=== PATIENT | female | born 1995 | race Caucasian/White ===

== ENCOUNTER 2019-11-05 13:43 | Outpatient (NON) | payer OTHER, SELFPAY ==
[2019-11-05 13:52] LABS: Appearance Urine Clear (Clear); Bilirubin Urine Negative (Negative); Color Urine Yellow (Yellow); Glucose Urine UA Negative (Negative); Ketones Urine Negative (Negative); Leukocyte Esterase Ur Negative LEU/UL (Negative); Nitrate Urine Positive (Negative); Protein Urine Negative (Negative); Specific Grav Ur >= 1.030 (1.010-1.020); Urobilinogen Urine 0.2 mg/dL (0.2-1.0); pH Urine 5.5 (5.0-8.0)
[2019-11-05 14:04] LABS: Add Urine Microscopic? YES; Blood Urine Trace-Intact (Negative)
[2019-11-05 14:05] LABS: Bacteria Urine 1+ /hpf; RBC Urine 0-2 /hpf (0-2); Squamous Epithelial Cell Urine Rare /hpf (Few)
== END 2019-11-05 13:44 ==
PROVIDERS: Visit Provider Nurse Practitioner Family
DX: N39.0 Urinary tract infection, site not specified (principal)
CPT/HCPCS: 81001; 87077; 87086; 87088; 87186

== ENCOUNTER 2019-11-12 13:34 | Emergency (ER) | payer OTHER, SELFPAY ==
--- NOTE | 2019-11-12 14:00 | ED.DENTAL ---
HPI - Dental/Oral General Chief complaint: Dental/Oral Stated complaint: cut on side of tongue do to grinding teeth at nigh Time Seen by Provider: 11/12/19 14:00 Source: patient Mode of arrival: ambulatory Limitations: no limitations History of Present Illness HPI Narrative: 24-year-old woman comes in today complaining of pain and swelling in the right side of her tongue for the last 2 days. Patient states that she grinds her teeth at night and thinks that she bit her tongue. She states that her pain is such that she can't eat or drink without a great deal of discomfort. She has had no difficulty swallowing, difficulty breathing, fever, nausea, vomiting or neck swelling. Teeth map: 1. Laceration, swelling Onset (ago): day(s) (2) Duration: constant Severity: severe Relieving factors: nothing Exacerbating factors: chewing and swallowing Context: trauma (mechanism) ( bit tongue) Associated symptoms: tongue swelling and pain with swallowing Treatment prior to arrival: oral analgesic Related Data Allergies Allergy/AdvReac Type Severity Reaction Status Date / Time amoxicillin [Augmentin] Allergy Intermediate Verified 12/10/18 16:42 cefaclor [Ceclor] Allergy Intermediate Verified 12/10/18 16:42 clavulanic acid [Augmentin] Allergy Intermediate Verified 12/10/18 16:42 Review of Systems Constitutional: Constitutional: Denies chills, Denies fever(s) and Denies weakness Eyes: Eyes: Denies change in vision and Denies photophobia ENT: Denies dysphagia, Denies nasal congestion and Denies sore throat Cardiovascular: Cardiovascular: Denies chest pain and Denies radiating jaw, neck or arm pain Respiratory: Respiratory: Denies cough, Denies dyspnea and Denies wheezing Gastrointestinal: Gastrointestinal: Denies abdominal pain, Denies diarrhea, Denies nausea and Denies vomiting Genitourinary: Genitourinary: Denies hematuria, Denies nocturia and Denies dysuria Musculoskeletal: Musculoskeletal: Denies back pain, Denies arthralgias and Denies joint swelling Integumentary/Breasts: Skin/Breast: Denies pruritus, Denies erythema and Denies rash Neurologic: Denies vertigo, Denies dizziness and Denies syncope Hematologic/Lymphatic: Hematologic/Lymphatic: Denies easy bleeding and Denies easy bruising Allergic/Immunologic: Allergic/Immunologic: Denies lip swelling, Denies throat swelling, Reports tongue swelling and Denies wheezing [facility] Past Medical History Medical History Nicotine dependence, cigarettes, uncomplicated Overweight Positive depression screening Surgical History Surgical History Abdominal hernia 1997 Social History Social History Smoking status: Current every day smoker Tobacco type: cigarettes Alcohol intake: never Substance use: never Substance use type: does not use Exam Const: General: healthy appearing and alert Orientation/consciousness: patient oriented x3 Limitations: no limitations Other: moderate acute distress. HENMT: Ears: external ears normal, TM's normal bilaterally and EAC's normal General nose exam: Normal nares present Face and sinus: normal facial exam Mouth: Yes moist mucous membranes Throat: posterior oropharynx normal Other: Healing longitudinal laceration on the right lateral tongue. no active bleeding. There is modest swelling around the laceration. She has no stridor and no tenderness palpation at the submental neck. Eyes: Conjunctivae: conjunctivae normal EOM: EOMs intact bilaterally Neck: Neck: normal visual inspection and no lymphadenopathy Other: No tenderness or masses or swelling Resp: Effort & Inspection: normal respiratory effort and not labored Auscultation: clear to auscultation bilaterally, no rales, no rhonchi and no wheezes Cardio: Rate: regular rate Rhythm: regular rhythm Hea
[2019-11-12 14:24] VITALS: BP 136/99; PULSE 118; RESP 20; TEMP 37.1; O2SAT 94
== END 2019-11-12 14:40 | disposition home or self-care (01) ==
PROVIDERS: Emergency Provider Emergency Medicine; PCP Nurse Practitioner Family
DX: S01.512A Laceration without foreign body of oral cavity, initial encounter (principal)
CPT/HCPCS: 99283

== ENCOUNTER 2020-02-20 17:28 | Outpatient (NON) | payer OTHER, SELFPAY | END 2020-02-20 17:29 | PROVIDERS: PCP Family Medicine; Visit Provider Family Medicine | DX: N39.0 Urinary tract infection, site not specified (principal) | CPT/HCPCS: 87086; 87088 ==

== ENCOUNTER 2020-05-29 13:43 | Emergency (ER) | payer OTHER, SELFPAY ==
--- NOTE | ~2020-05-29 | CT_ITS ---
EXAMINATION: CT abdomen pelvis wo con DATE: 05/29/2020 14:53 INDICATION: Right flank pain TECHNIQUE: Computed tomography (CT) of the abdomen and pelvis was performed without intravenous contr ast. The dose-length product was 965.57 mGy-cm. Automated exposure control and iterative reconstructi on technique were employed. COMPARISON: None. FINDINGS: There is mild prominence of the proximal right ureter with subtle surrounding periureteral edema. Lung bases unremarkable. No significant pleural or pericardial effusion. Heart size is normal. The li elie, spleen, pancreas, adrenal glands and left kidney are unremarkable. No ureteral stones. Bladder i s decompressed. Nonobstructive bowel gas pattern. No free air or free fluid. No abnormal pelvic sandi s. No significant vascular abnormality. No lymphadenopathy. No acute bone or joint abnormality. IMPRESSION: 1. Mild prominence of the proximal aspect of the right ureter with surrounding periureteral edema. No obstructing stone or mass identified. These findings may represent sequela of recently passed stone or ascending urinary tract infection. Reviewed, dictated and finalized at location A. IMPRESSION: 1. Mild prominence of the proximal aspect of the right ureter with surrounding periureteral edema. No obstructing stone or mass identified. These findings may represent sequela of recently passed stone or ascending urinary tract infectio n.
[2020-05-29 13:51] VITALS: BP 123/81; PULSE 117; RESP 16; TEMP 37.4; O2SAT 96
[2020-05-29 14:27] LABS: Basophils Absolute Auto 0.04 K/mm3 (0.00-0.10); Basophils Percent Auto 0.5 % (0.0-1.0); Eosinophils Absolute Auto 0.13 K/mm3 (0.02-0.50); Eosinophils Percent Auto 1.7 % (1.0-6.0); Hemoglobin 15.6 g/dL (12.0-15.0); Immature Granulocyte Absolute 0.03 K/mm3 (0.00-0.00); Immature Granulocyte Percent A 0.4 % (0.0-0.0); Lymphocytes Absolute Auto 2.82 K/mm3 (1.10-4.50); Lymphocytes Percent Auto 36.7 % (18.0-42.0); Mean Corpuscular HGB Conc 33.2 g/dL (32.0-36.0); Mean Corpuscular Hemoglobin 28.9 pg (27.0-31.0); Mean Corpuscular Volume 87.2 fL (78.0-102.0); Mean Platelet Volume 8.5 fl (9.2-11.8); Monocytes Absolute Auto 0.66 K/mm3 (0.10-0.90); Monocytes Percent Auto 8.6 % (2.0-11.0); Neutrophils Percent Auto 52.1 % (50.0-70.0); Platelet Count Result 295 K/mm3 (150-420); Red Blood Count 5.39 M/mm3 (4.20-5.40); Red Cell Distribution Width 12.1 % (11.6-14.4); White Blood Count 7.7 K/mm3 (4.8-10.8)
[2020-05-29 14:28] LABS: Add Urine Microscopic? YES; Appearance Urine Clear (Clear); Bilirubin Urine Negative (Negative); Blood Urine 1+ (Negative); Color Urine Yellow (Yellow); Glucose Urine UA Negative (Negative); Ketones Urine Negative (Negative); Leukocyte Esterase Ur 1+ LEU/UL (Negative); Nitrate Urine Positive (Negative); Protein Urine Negative (Negative); Urobilinogen Urine 0.2 mg/dL (0.2-1.0)
[2020-05-29 14:34] LABS: Bacteria Urine 4+ /hpf; Squamous Epithelial Cell Urine Occasional /hpf (Few); WBC Urine 21-30 /hpf (0-3)
[2020-05-29 14:35] LABS: Pregnancy On Board Control Positive; Urine Pregnancy Test Negative
[2020-05-29] MEDS: SODIUM CHLORIDE 0.9% IV 1,000 ML 999 ML IV CONT (14:40)
[2020-05-29 14:41] LABS: Alanine Aminotransferase 31 U/L (14-59); Alkaline Phosphatase 89 U/L (46-116); Anion Gap 8 mmol/L (8-16); Aspartate Amino Transferase 16 U/L (15-37); Bilirubin,Total 0.4 mg/dL (0.00-1.00); Blood Urea Nitrogen 10 mg/dL (7-18); Calcium 8.7 mg/dL (8.5-10.1); Carbon Dioxide 29 mmol/L (21-32); Chloride 102 mmol/L (98-108); Estimated CRCL calculation 106 ml/min; Estimated Glomerular Filt Rate > 60; Glucose 92 mg/dL (70-99); Lipase 83 U/L (73-393); Osmolality Calculated 287 mOsm/kg (285-295); Potassium 3.8 mmol/L (3.5-5.1); Sodium 139 mmol/L (136-145); Total Protein 7.1 g/dL (6.4-8.2)
[2020-05-29] MEDS: KETOROLAC 30 MG/ML VIAL (*BKC) IV PUSH (14:44)
[2020-05-29 14:47] LABS: Lactic Acid Reflex 0.5 mmol/L (0.4-2.0)
--- NOTE | 2020-05-29 15:01 | ED.BACK ---
HPI - Back Pain/Injury General Chief Complaint: Back Pain/Injury Stated Complaint: lower back and side pain Source: patient History of Present Illness HPI Narrative: This is a 25-year-old female who presents with bilateral flank pain with suprapubic discomfort with dysuria, currently no fever chills no hematuria no nausea vomiting does have pain that she rates it about a 6/10. Currently there is no shortness of breath no chest pain does have bilateral flank tenderness an achiness. MD elicited complaint: back pain Onset (ago): day(s) Timing: intermittent Severity: moderate Pain scale (0-10): 6 Quality: aching Related Data Home Medications Medication Instructions Recorded Confirmed norethindrone-e.estradiol-iron 1 tablet PO DAILY 05/29/20 05/29/20 [[place] Fe 1.5/ (28)] Allergies Allergy/AdvReac Type Severity Reaction Status Date / Time amoxicillin [Augmentin] Allergy Intermediate Unknown Verified 11/12/19 14:41 cefaclor [Ceclor] Allergy Intermediate Unknown Verified 11/12/19 14:41 clavulanic acid [Augmentin] Allergy Intermediate Unknown Verified 11/12/19 14:41 Review of Systems Review of Systems: All systems reviewed & are unremarkable except as noted in HPI and below PMFSH Past Medical History Medical History (Updated 05/29/20 @ 15:07 by Rene Tamayo MD) Nicotine dependence, cigarettes, uncomplicated Overweight Positive depression screening Surgical History Surgical History Abdominal hernia 1998 Family History Family History Mother Hypertension Father Hypertension Social History Social History Smoking status: Current every day smoker Tobacco type: cigarettes Alcohol intake: never Substance use: never Substance use type: does not use Gender identity (if verbalized by the patient): Female Exam Const: General: no acute distress and alert Orientation/consciousness: patient oriented x3 HENMT: Head: normal to inspection Eyes: Conjunctivae: conjunctivae normal Pupils: Equal, round and reactive pupils present Neck: Neck: normal visual inspection Chest: Chest palpation & inspection: normal inspection of the chest Resp: Effort & Inspection: normal respiratory effort Cardio: Rate: regular rate Rhythm: regular rhythm GI: Auscultation: normal bowel sounds : General: Yes CVA tenderness Urinary Catheter: Urinary Catheter: patent and draining and urine clear Back/Spine/Pelvis: Back: no CVA tenderness Skin: General skin exam: normal color Rashes: no rashes Neuro: General: patient oriented x3 Extrem: General: normal to inspection Psych: Mental Status: mental status grossly normal Course Course Emergency Course: Labs and CT scan were reviewed with patient, the patient has some right periurethral edema with no obstructing stone currently no fever chills white count is normal will give her a dose of IV Levaquin, and will send pain medication and Levaquin to her pharmacy. Vital Signs Vital signs: Vital Signs Temperature 37.4 C 05/29/20 13:51 Pulse Rate 117 H 05/29/20 13:51 Respiratory Rate 16 05/29/20 13:51 Blood Pressure 123/81 05/29/20 13:51 Pulse Oximetry 96 05/29/20 13:51 Temperature 37.4 C 05/29/20 13:51 Pulse Rate 117 H 05/29/20 13:51 Respiratory Rate 16 05/29/20 13:51 Blood Pressure 123/81 05/29/20 13:51 Pulse Oximetry 96 05/29/20 13:51 MDM - Back Pain/Injury Lab Data Result diagrams: 05/29/20 14:22 05/29/20 14:22 Labs: Lab Results 05/29/20 05/29/20 05/29/20 Range/Units 14:13 14:13 14:22 WBC (4.8-10.8) K/mm3 RBC (4.20-5.40) M/mm3 Hgb (12.0-15.0) g/dL Hct (35.0-49.0) % MCV (78.0-102.0) fL MCH (27.0-31.0) pg MCHC (32.0-36.0) g/dL RDW (11.6-14.4) % Plt Count
[2020-05-29] MEDS: levoFLOXacin 500 MG/D5W 100 ML 500 MG/100 ML BAG 100 MG IVPB (15:10)
[2020-05-29 16:09] VITALS: BP 126/91; PULSE 115; RESP 15; O2SAT 99
== END 2020-05-29 16:14 | disposition home or self-care (01) ==
PROVIDERS: Emergency Provider Emergency Medicine; PCP Nurse Practitioner Family
DX: N39.0 Urinary tract infection, site not specified (principal)
CPT/HCPCS: 36415; 74176; 80053; 81001; 81025; 83605; 83690; 85025; 87077; 87086; 87088; 87186; 96361; 96365; 96375; 99283; 99284; J1885; J1956; J7030

== ENCOUNTER 2020-07-19 16:05 | Outpatient (NON) | payer OTHER, SELFPAY | END 2020-07-19 16:06 | disposition home or self-care (01) | LOC: CHSLAB 16:07 | PROVIDERS: PCP Nurse Practitioner Family; Visit Provider Nurse Practitioner Family | DX: R30.0 Dysuria (principal); R10.31 Right lower quadrant pain; R10.32 Left lower quadrant pain | CPT/HCPCS: 87086; 87491; 87591; 87661 ==

== ENCOUNTER 2020-07-28 12:23 | Outpatient (CLI) | payer OTHER, SELFPAY ==
--- NOTE | 2020-07-29 15:49 | WPDHOLTEREM ---
Holter/Event Monitor Holter/Event Monitor Date of procedure: 07/29/20 Holter/Event Procedure: 24 Hr Holter Monitor Indications: Tachycardia Conclusion: 1. 24 hour holter monitor on 07/29/20. 2. Underlying rhythm is sinus rhythm. HR range 77-162 bpm; average HR 123 bpm. 3. There are 5 premature supraventricular complexes. No supraventricular tachycardia. 4. There are 3 premature ventricular complexes. No ventricular tachycardia. 5. No sinoatrial or atrioventricular blocks. No significant pauses greater than 2 seconds. 6. Patient reports symptoms of fluttering and chest discomfort, and lightheadedness which demonstrate sinus tachycardia, HR range 110-128 bpm.
== END 2020-07-28 12:24 | disposition home or self-care (01) ==
LOC: CHSCARD 12:25
PROVIDERS: PCP Nurse Practitioner Family; Visit Provider Family Medicine
DX: R00.0 Tachycardia, unspecified (principal)
CPT/HCPCS: 93225; 93226; 93227

== ENCOUNTER 2021-08-25 07:44 | Outpatient (CLI) | payer OTHER, SELFPAY ==
--- NOTE | ~2021-08-25 | US_ITS ---
EXAMINATION: US OB <= 14 weeks fetus DATE: 08/25/2021 08:49 INDICATION: Positive test. Unsure of gestational dates. TECHNIQUE: Real-time transabdominal obstetric ultrasound. FINDINGS: No prior studies for comparison. The uterus measures 14.4 x 7.7 x 5.8 cm. There is an intrauterine gestational sac, with pole id entified. The crown rump length measures 3.98 cm, which correlates with a estimated gestational age of 10 weeks 6 days. heart tones are identified measuring 157 BPM. Right ovary within normal l imits. Left ovary is not visualized. No free fluid in the pelvis. IMPRESSION: 1. SL IUP with an EGA of 10 weeks, 6 days (EDC by current ultrasound of 03/17/2022). Reviewed, dictated and finalized at location L. IMPRESSION: 1. SL IUP with an EGA of 10 weeks, 6 days (EDC by current ultrasound of 03/17/19).
== END 2021-08-25 07:45 | disposition home or self-care (01) ==
LOC: CHSIMG 07:46
PROVIDERS: PCP Nurse Practitioner Family; Visit Provider Family Medicine
DX: Z34.90 Encounter for supervision of normal pregnancy, unspecified, unspecified trimester (principal)
CPT/HCPCS: 76801

== ENCOUNTER 2021-10-14 15:17 | Outpatient (CLI) | payer MEDICAID, SELFPAY ==
[2021-10-14 15:40] LABS: Basophils Absolute Auto 0.04 K/mm3 (0.00-0.10); Basophils Percent Auto 0.4 % (0.0-1.0); Eosinophils Absolute Auto 0.22 K/mm3 (0.02-0.50); Eosinophils Percent Auto 2.3 % (1.0-6.0); Hematocrit 40.6 % (35.0-49.0); Hemoglobin 13.6 g/dL (12.0-15.0); Immature Granulocyte Absolute 0.08 K/mm3 (0.00-0.00); Immature Granulocyte Percent A 0.8 % (0.0-0.0); Lymphocytes Percent Auto 20.5 % (18.0-42.0); Mean Corpuscular HGB Conc 33.5 g/dL (32.0-36.0); Mean Corpuscular Hemoglobin 30.2 pg (27.0-31.0); Mean Corpuscular Volume 90.2 fL (78.0-102.0); Mean Platelet Volume 9.1 fl (9.2-11.8); Monocytes Absolute Auto 0.65 K/mm3 (0.10-0.90); Monocytes Percent Auto 6.7 % (2.0-11.0); Neutrophils Absolute Auto 6.8 K/mm3 (1.7-7.2); Neutrophils Percent Auto 69.3 % (50.0-70.0); Platelet Count Result 310 K/mm3 (150-420); White Blood Count 9.7 K/mm3 (4.8-10.8)
[2021-10-14 16:08] LABS: Thyroid Stimulating Hormone 1.53 uIU/mL (0.36-3.74)
[2021-10-14 16:54] LABS: HIV 1 P24 AG Negative (Negative); HIV 1/2 AB Negative (Negative)
[2021-10-17 15:01] LABS: RPR Screen Non-Reactive (Non-Reactive)
[2021-10-18 12:10] LABS: Rubella IgG Antibody <0.90 Index
[2021-10-18 15:26] LABS: Hematocrit 39.9 % (35.0-45.0); Hemoglobin 13.6 g/dL (11.7-15.5); MCH 29.9 pg (27.0-33.0); MCV 87.7 fL (80.0-100.0); RDW 12.9 % (11.0-15.0); Red Blood Cell Count 4.55 Mill/uL (3.80-5.10)
[2021-10-19 04:19] LABS: Hepatitis B Surface Antigen Nonreactive (Nonreactive); Hepatitis C Signal to Cutoff 0.01 ratio (<1.00); Hepatitis C Virus Antibody Nonreactive (Nonreactive)
[2021-10-20 20:51] LABS: Vitamin D 25 Hydroxy 17 ng/mL (30-100)
[2021-10-25 12:13] LABS: CF Result NEGATIVE (NEGATIVE)
== END 2021-10-14 15:18 | disposition home or self-care (01) ==
LOC: CHSLAB 15:18
PROVIDERS: PCP Family Medicine; Visit Provider Student in an Organized Health Care Education/Training Program
DX: Z34.91 Encounter for supervision of normal pregnancy, unspecified, first trimester (principal)
CPT/HCPCS: 36415; 81220; 81243; 82306; 83021; 84443; 85025; 86592; 86703; 86762; 86787; 86850; 86900; 86901; 87077; 87086; 87088

== ENCOUNTER 2021-12-22 14:29 | Outpatient (CLI) | payer OTHER, SELFPAY ==
[2021-12-22 16:07] LABS: Basophils Absolute Auto 0.1 K/mm3 (0.0-0.1); Basophils Percent Auto 0.5 % (0.2-1.2); Eosinophils Absolute Auto 0.2 K/mm3 (0-0.3); Eosinophils Percent Auto 1.3 % (0-4.4); Hematocrit 41.8 % (37.0-47.0); Hemoglobin 14.1 g/dL (12.0-15.0); Immature Granulocyte Absolute 0.17 K/mm3 (0.00-0.031); Immature Granulocyte Percent A 1.3 % (0-0.5); Lymphocytes Absolute Auto 2.16 K/mm3 (0.9-3.2); Mean Corpuscular HGB Conc 33.7 g/dl (32-36); Mean Corpuscular Hemoglobin 29.9 pg (26-34); Mean Corpuscular Volume 88.6 fl (80-100); Monocytes Absolute Auto 0.9 K/mm3 (0.1-0.6); Monocytes Percent Auto 6.8 % (2.6-8.5); Neutrophils Absolute Auto 9.3 K/mm3 (1.3-6.7); Neutrophils Percent Auto 73.1 % (45.5-73.1); Platelet Count Result 297 k/mm3 (150-375); Red Blood Count 4.72 M/mm3 (4.2-5.4); Red Cell Distribution Width 13.2 % (11.5-14.5); White Blood Count 12.7 K/mm3 (4.5-10.0)
[2021-12-22 16:18] LABS: Glucose 1 Hour PP 50gm Dose 88 mg/dL
== END 2021-12-22 14:30 | disposition home or self-care (01) ==
LOC: ANHLAB 14:30
PROVIDERS: PCP Nurse Practitioner Family; Visit Provider Student in an Organized Health Care Education/Training Program
DX: Z34.02 Encounter for supervision of normal first pregnancy, second trimester (principal); Z3A.00 Weeks of gestation of pregnancy not specified
CPT/HCPCS: 36415; 82947; 85025

== ENCOUNTER 2022-01-29 14:17 | Emergency (ER) | payer OTHER, MEDICAID, SELFPAY ==
[2022-01-29 14:18] VITALS: BP 112/79; PULSE 125; RESP 18; TEMP 36.7; O2SAT 95
[2022-01-29 14:25] VITALS: BP 112/79; PULSE 112; RESP 18; TEMP 36.6; O2SAT 96
--- NOTE | 2022-01-29 14:44 | ED.GENADULT ---
HPI - General Adult General Chief complaint: Nausea/Vomiting/Diarrhea Stated complaint: nausea,diarrhea, back and stomach pain 33 weeks p Time Seen by Provider: 01/29/22 14:21 History of Present Illness HPI narrative: Chivo is a 26F with a PMH of anxiety, tachycardia, depression, frequent UTI that was seen in the emergency department for N/V and abdominal pain that started this morning. She has had a couple of episodes of non-bloody vomiting and several episodes of watery diarrhea and infrequent cramps. When asked if she was having contractions or any regular pain/discomfort she denied it. She has not been able to eat or drink much. She denies any chest pain, worsening dyspnea, dysuria, or lightheadedness. There is no vaginal discharge or bleeding. Related Data Home Medications Medication Instructions Recorded Confirmed prenat.vits,jessie,[id number]-[id number] 1 tablet PO DAILY 09/28/21 01/29/22 Allergies Allergy/AdvReac Type Severity Reaction Status Date / Time amoxicillin [Augmentin] Allergy Intermediate Unknown Verified 01/29/22 14:36 cefaclor [Ceclor] Allergy Intermediate Unknown Verified 01/29/22 14:36 clavulanic acid [Augmentin] Allergy Intermediate Unknown Verified 01/29/22 14:36 Review of Systems Review of Systems: All systems reviewed & are unremarkable except as noted in HPI and below PMFSH Past Medical History Medical History Frequent UTI Nicotine dependence, cigarettes, uncomplicated Quit 2021 Overweight Positive depression screening Seasonal allergies Surgical History Surgical History Abdominal hernia 1998 Family History Family History Mother Hypertension Father Hypertension Social History Social History Smoking status: Former smoker Tobacco type: cigarettes Smoking end date: 08/25/21 Alcohol intake: never Substance use: never Substance use type: does not use Gender identity (if verbalized by the patient): Female Exam Const: Nutritional Appearance: well nourished and not obese Orientation/consciousness: patient oriented x3 Limitations: no limitations, No altered mental status, No behavioral limitations and No language barrier HENMT: Head: normal to inspection Ears: external ears normal and TM's normal bilaterally Face/Nose/Sinus: Normal external nose present Face and sinus: normal facial exam Eyes: Conjunctivae: conjunctivae normal Pupils: Equal, round and reactive pupils present Neck: Neck: normal visual inspection Chest: Chest palpation & inspection: normal inspection of the chest Resp: Effort & Inspection: normal respiratory effort Auscultation: clear to auscultation bilaterally Cardio: Rate: tachycardic Rhythm: regular rhythm GI: Other: Normal bowel sounds. No TTP, no rebound tenderness or guarding. No TTP over the iliac fossa. Negative obturator and psoas sign. Fundus 4cm above the umbilicus. : Other: No CVA tenderness Skin: General skin exam: normal color Neuro: General: patient oriented x3 and moves all extremities Cranial nerves: Yes Nystagmus not present Extrem: General: normal to inspection Psych: Mental Status: mental status grossly normal Course Course Emergency Course: Given fluids, benadryl and tylenol Labs showed mild leukocytosis c/w gastroenteritis or , unremarkable chemistries and UA. As she continued to have some abdominal pain a cervical exam was done. The cervix was closed on exam. She was given discharge instructions to return to the emergency department if she started to have regular contractions that are getting more painful or if she broke her fluids as well as fevers, chills and poor PO intake. Vital Signs Vital signs: Vital Signs Temperature 98.0 F 01/29/22 14:18 Pulse Rate 125
[2022-01-29] MEDS: diphenhydrAMINE HCl CAP 25 MG CAPSULE PO (14:54)
[2022-01-29] MEDS: ACETAMINOPHEN 325 MG TABLET 650 MG PO (14:54)
[2022-01-29] MEDS: SODIUM CHLORIDE 0.9% IV 1,000 ML 999 ML IV CONT (14:59)
[2022-01-29 15:02] LABS: Basophils Absolute Auto 0.03 K/mm3 (0.00-0.10); Basophils Percent Auto 0.2 % (0.0-1.0); Eosinophils Percent Auto 0.7 % (1.0-6.0); Hematocrit 41.8 % (35.0-49.0); Hemoglobin 14.1 g/dL (12.0-15.0); Immature Granulocyte Percent A 0.7 % (0.0-0.0); Lymphocytes Absolute Auto 0.94 K/mm3 (1.10-4.50); Lymphocytes Percent Auto 6.7 % (18.0-42.0); Mean Corpuscular HGB Conc 33.7 g/dL (32.0-36.0); Mean Corpuscular Hemoglobin 30.1 pg (27.0-31.0); Mean Corpuscular Volume 89.1 fL (78.0-102.0); Mean Platelet Volume 9.3 fl (9.2-11.8); Monocytes Absolute Auto 0.74 K/mm3 (0.10-0.90); Monocytes Percent Auto 5.2 % (2.0-11.0); Neutrophils Absolute Auto 12.2 K/mm3 (1.7-7.2); Neutrophils Percent Auto 86.5 % (50.0-70.0); Platelet Count Result 273 K/mm3 (150-420); Red Blood Count 4.69 M/mm3 (4.20-5.40); Red Cell Distribution Width 13.2 % (11.6-14.4); White Blood Count 14.1 K/mm3 (4.8-10.8)
[2022-01-29 15:10] LABS: Add Urine Microscopic? YES; Appearance Urine Clear (Clear); Bilirubin Urine Negative (Negative); Blood Urine Negative (Negative); Color Urine Yellow (Yellow); Glucose Urine UA Negative (Negative); Ketones Urine 1+ (Negative); Leukocyte Esterase Ur Negative LEU/UL (Negative); Nitrate Urine Negative (Negative); Protein Urine Negative (Negative); Urobilinogen Urine 0.2 mg/dL (0.2-1.0)
[2022-01-29 15:16] LABS: RBC Urine 0-2 /hpf (0-2); Squamous Epithelial Cell Urine Moderate /hpf (Few); WBC Urine 0-3 /hpf (0-3)
[2022-01-29 15:17] LABS: Amorphous Sediment Urine Few; Bacteria Urine 1+ /hpf; Mucus Urine Moderate /lpf
[2022-01-29 15:19] LABS: Alanine Aminotransferase 21 U/L (14-59); Albumin Level 2.6 g/dL (3.4-5.0); Alkaline Phosphatase 187 U/L (46-116); Anion Gap 8 mmol/L (8-16); Aspartate Amino Transferase < 10 U/L (15-37); Bilirubin,Total 0.2 mg/dL (0.00-1.00); Blood Urea Nitrogen 8 mg/dL (7-18); CRP 0.5 mg/dL (0.0-0.9); Calcium 8.2 mg/dL (8.5-10.1); Carbon Dioxide 25 mmol/L (21-32); Chloride 104 mmol/L (98-108); Estimated CRCL calculation 204 ml/min; Estimated Glomerular Filt Rate > 60; Glucose 101 mg/dL (70-99); Lipase 25 U/L (16-77); Osmolality Calculated 282 mOsm/kg (285-295); Potassium 3.8 mmol/L (3.5-5.1); Sodium 137 mmol/L (136-145); Total Protein 6.7 g/dL (6.4-8.2)
[2022-01-29 15:23] LABS: Lactic Acid Reflex 1.1 mmol/L (0.4-2.0)
[2022-01-29 15:41] LABS: Influenza A QL RT-PCR Negative (Negative); Influenza B QL RT-PCR Negative (Negative); SARS-CoV-2 RNA PCR Negative (Negative)
[2022-01-29 15:45] LABS: RSV RNA, RT-PCR Negative (Negative)
[2022-01-29 16:30] VITALS: BP 121/68; PULSE 91; RESP 18; TEMP 36.6; O2SAT 100
== END 2022-01-29 16:35 | disposition home or self-care (01) ==
PROVIDERS: Emergency Provider Family Medicine; PCP Family Medicine
DX: K52.9 Noninfective gastroenteritis and colitis, unspecified (principal); Z87.891 Personal history of nicotine dependence; Z20.822 Contact with and (suspected) exposure to COVID-19
CPT/HCPCS: 36415; 80053; 81001; 83605; 83690; 85025; 86140; 87637; 96360; 99283; A9270; J7030

== ENCOUNTER 2022-02-28 15:54 | Outpatient (CLI) | payer OTHER, MEDICAID, SELFPAY ==
[2022-02-28 16:56] LABS: HIV 1 P24 AG Negative (Negative); HIV 1/2 AB Negative (Negative)
[2022-03-02 17:06] LABS: RPR Screen Non-Reactive (Non-Reactive)
== END 2022-02-28 15:55 | disposition home or self-care (01) ==
LOC: CHSLAB 15:56
PROVIDERS: PCP Family Medicine; Visit Provider Obstetrics & Gynecology
DX: Z34.03 Encounter for supervision of normal first pregnancy, third trimester (principal)
CPT/HCPCS: 36415; 86592; 86703

== ENCOUNTER 2022-03-15 06:56 | Emergency (ER) | payer OTHER, SELFPAY ==
[2022-03-15 06:58] VITALS: BP 153/107; PULSE 88; RESP 16; TEMP 36.3; O2SAT 98
--- NOTE | 2022-03-15 07:15 | ED.DENTAL ---
HPI - Dental/Oral General Chief complaint: Dental/Oral Stated complaint: Dental Pain Time Seen by Provider: 03/15/22 07:15 Source: patient Mode of arrival: ambulatory Limitations: no limitations History of Present Illness HPI Narrative: 27-year-old female who is with KASHMIR on 03/17/2022 presents to the ER with -- left upper wisdom teeth pain. The patient used some [id number]-ulkajpr dental filling to relieve her pain. Subsequently her pain has increased. MD Complaint: tooth pain Location: Tooth # (16) Onset (ago): day(s) Duration: constant Severity: severe Relieving factors: nothing Exacerbating factors: cold and heat Treatment prior to arrival: other ( [id number] dental filling) Related Data Home Medications Medication Instructions Recorded Confirmed prenat.vits,jessie,[id number] 1 tablet PO DAILY 09/28/21 03/15/22 Allergies Allergy/AdvReac Type Severity Reaction Status Date / Time amoxicillin [Augmentin] Allergy Intermediate Unknown Verified 03/08/22 15:44 cefaclor [Ceclor] Allergy Intermediate Unknown Verified 03/08/22 15:44 clavulanic acid [Augmentin] Allergy Intermediate Unknown Verified 03/08/22 15:44 Review of Systems Review of Systems: All systems reviewed & are unremarkable except as noted in HPI and below Constitutional: Constitutional: Reports as per HPI and Reports no additional constitutional complaints Comments: 39 weeks Eyes: Eyes: Reports as per HPI ENT: Reports system reviewed and no additional complaints, except as documented and Reports as per HPI Comments: left upper dental pain Cardiovascular: Cardiovascular: Reports as per HPI and Reports no additional cardiovascular complaints Respiratory: Respiratory: Reports as per HPI and Reports no additional respiratory complaints Gastrointestinal: Gastrointestinal: Reports as per HPI and Reports no additional gastrointestinal complaints Genitourinary: Genitourinary: Reports no additional female genitourinary complaints and Reports as per HPI Musculoskeletal: Musculoskeletal: Reports no additional musculoskeletal complaints and Reports as per HPI Integumentary/Breasts: Skin/Breast: Reports system reviewed and no additional complaints, except as docu and Reports as per HPI Neurologic: Reports system reviewed and no additional complaints, except as documented and Reports as per HPI Psychiatric: Psychiatric: Reports no additional psychiatric complaints and Reports as per HPI Endocrine: Endocrine: Reports no additional endocrine complaints and Reports as per HPI Hematologic/Lymphatic: Hematologic/Lymphatic: Reports no additional hematologic/lymphatic complaints and Reports as per HPI Allergic/Immunologic: Allergic/Immunologic: Reports no additional allergic/immunologic complaints and Reports as per HPI PMFSH Past Medical History Medical History Frequent UTI Nicotine dependence, cigarettes, uncomplicated Quit 2021 Overweight Positive depression screening Seasonal allergies Surgical History Surgical History Abdominal hernia 1997 Family History Family History Mother Hypertension Blood clotting disorder Father Hypertension Grandparent Cancer Hypertension Blood clotting disorder Social History Social History Smoking status: Former smoker Tobacco type: cigarettes Smoking end date: 08/25/21 Alcohol intake: never Substance use: former Substance use type: does not use Gender identity (if verbalized by the patient): Female Spiritual care concerns: No Exam Const: General: healthy appearing Orientation/consciousness: patient oriented x3 Limitations: no limitations HENMT: Head: normal to inspection Face/Nose/Sinus: Normal external nose present Face and sinus:
[2022-03-15] MEDS: HYDROcodone/acetaminophen (*CRX) 5-325 MG TABLET 1 TAB PO (07:35)
[2022-03-15 07:40] VITALS: BP 149/103; PULSE 95; RESP 20; TEMP 36.6; O2SAT 98
== END 2022-03-15 07:50 | disposition home or self-care (01) ==
PROVIDERS: Emergency Provider Internal Medicine Critical Care Medicine; PCP Family Medicine
DX: O26.893 Other specified pregnancy related conditions, third trimester (principal); K08.89 Other specified disorders of teeth and supporting structures; Z3A.39 39 weeks gestation of pregnancy; Z87.891 Personal history of nicotine dependence
CPT/HCPCS: 99283; A9270

== ENCOUNTER 2022-03-15 13:25 | Inpatient (IN) | payer OTHER, MEDICAID, SELFPAY ==
[2022-03-15] VITALS (27 sets, daily range): BP systolic 120–157; BP diastolic 46–107; PULSE 91–140; TEMP 36.4–36.7; BMI 44.8
[2022-03-15 14:28] LABS: Basophils Percent Auto 0.4 % (0.2-1.2); Eosinophils Absolute Auto 0.2 K/mm3 (0-0.3); Eosinophils Percent Auto 1.7 % (0-4.4); Hematocrit 39.3 % (37.0-47.0); Hemoglobin 13.3 g/dL (12.0-15.0); Immature Granulocyte Absolute 0.09 K/mm3 (0.00-0.031); Immature Granulocyte Percent A 0.9 % (0-0.5); Lymphocytes Absolute Auto 1.99 K/mm3 (0.9-3.2); Lymphocytes Percent Auto 19.2 % (18.3-44.2); Mean Corpuscular HGB Conc 33.8 g/dl (32-36); Mean Corpuscular Volume 88.7 fl (80-100); Mean Platelet Volume 9.2 fl (7.4-10.4); Monocytes Absolute Auto 0.7 K/mm3 (0.1-0.6); Monocytes Percent Auto 6.9 % (2.6-8.5); Neutrophils Absolute Auto 7.4 K/mm3 (1.3-6.7); Neutrophils Percent Auto 70.9 % (45.5-73.1); Platelet Count Result 248 k/mm3 (150-375); Red Blood Count 4.43 M/mm3 (4.2-5.4); Red Cell Distribution Width 13.2 % (11.5-14.5); White Blood Count 10.4 K/mm3 (4.5-10.0)
[2022-03-15 14:33] LABS: Appearance Urine Clear (Clear); Bilirubin Urine Negative (Negative); Blood Urine Negative (Negative); Color Urine Yellow (Yellow); Glucose Urine UA Negative (Negative); Ketones Urine Negative (Negative); Leukocyte Esterase Ur Negative LEU/UL (NEGATIVE); Nitrate Urine Negative (Negative); Protein Urine Negative (Negative); Urobilinogen Urine 0.2 mg/dL (<2.0)
[2022-03-15 14:34] LABS: Add Urine Microscopic? NO
[2022-03-15 14:37] LABS: Alanine Aminotransferase 18 U/L (6-35); Albumin Level 3.3 g/dL (3.5-5.1); Alkaline Phosphatase 343 U/L (38-126); Anion Gap 6 mmol/L (8-16); Aspartate Amino Transferase 18 U/L (14-36); Bilirubin,Total 0.3 mg/dL (0.2-1.3); Blood Urea Nitrogen 10 mg/dL (7-17); Calcium 8.4 mg/dL (8.4-10.2); Carbon Dioxide 22 mmol/L (22-30); Chloride 106 mmol/L (98-107); Estimated CRCL calculation 195 ml/min; Estimated Glomerular Filt Rate > 60; Glucose 97 mg/dL (65-110); Potassium 3.9 mmol/L (3.4-5.0); Sodium 134 mmol/L (137-145)
[2022-03-15 14:37] LABS: Creatinine Urine 90.7 mg/dL; Total Protein Urine Random 14 mg/dL; Ur Ttl Prot Creatinine Ratio 0.15 mg/mg (0-0.20)
[2022-03-15 14:38] LABS: Uric Acid 5.6 mg/dL (2.5-7.5)
[2022-03-15] MEDS: DINOPROSTONE 10 MG VAG INSERT VAGINAL ×2 (14:58→21:47)
--- NOTE | 2022-03-15 15:24 | PM.IMHP ---
H&P: HPI History of Present Illness Date/Time: 03/15/22 15:24 Chief Complaint: medical induction of labor Narrative: Pt is a 27 y/o G1 at 39 5/7 weeks by 10 week u/s with an EDC of 03/17/22. She presented to OB visit with elevated blood pressures. She was seen in the ED for tooth pain and bp 150/107. BP 4 hours later at OB visit was 145/99. Her tooth pain was improved with [place] given in ED. She denies headache, no scotomata or RUQ pain. BP continued to be elevated on L and D. PIH labs normal. PNC significant for h/o tobacco abuse she did stop tobacco. Labs reviewed GBS neg. Review of Systems Review of Systems: All systems reviewed & are unremarkable except as noted in HPI and below Constitutional: Constitutional: Reports no additional constitutional complaints and Denies headache(s) Eyes: Eyes: Denies spots in vision ENT: Reports system reviewed and no additional complaints, except as documented and Denies headache(s) Cardiovascular: Cardiovascular: Denies chest pain and Denies dyspnea Respiratory: Respiratory: Denies dyspnea Gastrointestinal: Gastrointestinal: Reports no additional gastrointestinal complaints Genitourinary: Genitourinary: Reports amenorrhea Musculoskeletal: Musculoskeletal: Reports no additional musculoskeletal complaints Integumentary/Breasts: Skin/Breast: Denies breast mass and Denies rash Neurologic: Denies headache(s) Psychiatric: Psychiatric: Reports no additional psychiatric complaints [facility] Past Medical History Medical History Frequent UTI Gestational hypertension affecting first Nicotine dependence, cigarettes, uncomplicated Quit 2021 Overweight Positive depression screening Seasonal allergies Surgical History Surgical History Abdominal hernia 1997 Family History Family History Mother Hypertension Blood clotting disorder Father Hypertension Grandparent Cancer Hypertension Blood clotting disorder Social History Social History Smoking status: Light tobacco smoker Tobacco type: cigarettes Second hand tobacco smoke exposure: No Smoking end date: 08/25/21 Alcohol intake: never Substance use: former Substance use type: does not use Lack of Transportation: No Lack of Food: Never True Current Housing: I Have Housing Concerned About Future Housing: No Difficulty Paying Gas/Electric Bills: No Difficulty Paying for Meds: No Currently Unemployed: No Education: High School Diploma/GED Difficulty w/ Childcare or Family Care: No Gender identity (if verbalized by the patient): Female Spiritual care concerns: No Meds Home Medications and Allergies Home Medications Medication Instructions Recorded Confirmed Type prenat.vits,jessie,[id number] 1 tablet PO DAILY 09/28/21 03/15/22 History famotidine 20 mg tablet 20 mg PO DAILY #30 tabs 03/10/22 03/15/22 Rx propranolol 20 mg tablet 20 mg PO BID 03/15/22 03/15/22 History Allergies Allergy/AdvReac Type Severity Reaction Status Date / Time amoxicillin [Augmentin] Allergy Intermediate Unknown Verified 03/15/22 10:58 cefaclor [Ceclor] Allergy Intermediate Unknown Verified 03/15/22 10:58 clavulanic acid [Augmentin] Allergy Intermediate Unknown Verified 03/15/22 10:58 Vital Signs Vital Signs - 24 hr 03/15/22 13:53 03/15/22 14:01 03/15/22 14:15 Pulse Rate 107 H 102 H 101 H Blood Pressure 126/88 126/71 134/89 Oxygen Delivery 03/15/22 14:31 03/15/22 14:46 03/15/22 15:01 Pulse Rate 101 H 100 97 Blood Pressure 124/73 120/78 137/90 Oxygen Delivery 03/15/22 15:16 03/15/22 14:26 Pulse Rate 140 H Blood Pressure 147/46 H Oxygen Delivery Room Air Exam Const: General: no acute distress Eyes: General: appearance normal,
--- NOTE | 2022-03-15 18:36 | WPDANESEPP ---
Anes - Eval Pre Procedure Procedure: Labor epidural Date/Time: 03/15/22 18:36 Surgeon: Aneudy Preop Diagnosis: Abdominal pain with contractions Pre Op Diagnosis: iol Patient Data Age: 27 Gender: F Height: 1.68 m Weight: 126 kg Last Vital Signs Temp 97.8 F 03/15/22 16:09 Pulse 103 H 03/15/22 17:01 BP 133/93 H 03/15/22 17:01 O2 Del Method Room Air 03/15/22 14:26 Allergies Allergy/AdvReac Type Severity Reaction Status Date / Time amoxicillin [Augmentin] Allergy Intermediate Unknown Verified 03/15/22 10:58 cefaclor [Ceclor] Allergy Intermediate Unknown Verified 03/15/22 10:58 clavulanic acid [Augmentin] Allergy Intermediate Unknown Verified 03/15/22 10:58 Home Medications Medication Instructions Recorded Confirmed Type prenat.vits,jessie,qss-ftul-falrq 1 tablet PO DAILY 09/28/21 03/15/22 History famotidine 20 mg tablet 20 mg PO DAILY #30 tabs 03/10/22 03/15/22 Rx propranolol 20 mg tablet 20 mg PO BID 03/15/22 03/15/22 History Laboratory Tests 03/15/22 03/15/22 03/15/22 13:58 13:58 13:59 WBC RBC Hgb Hct MCV MCH MCHC RDW Plt Count MPV Immature Gran % (Auto) Neut % (Auto) Lymph % (Auto) Charles % (Auto) Eos % (Auto) Baso % (Auto) Lymph # (Auto) Charles # (Auto) Eos # (Auto) Baso # (Auto) Abs Immat Gran (auto) Absolute Neuts (auto) Absolute Nucleated RBC Nucleated RBC % Sodium Potassium Chloride Carbon Dioxide Anion Gap BUN Creatinine Estim Creat Clear Calc Estimated GFR Glucose Uric Acid 5.6 mg/dL mg/dL (2.5-7.5) Calcium Total Bilirubin AST ALT Alkaline Phosphatase Total Protein Albumin Urine Color Yellow (Yellow) Urine Appearance Clear (Clear) Urine pH 6.0 (5.0-9.0) Ur Specific [place] 1.020 (1.001-1.035) Urine Protein Negative mg/dL mg/dL (Negative) Urine Glucose (UA) Negative mg/dL mg/dL (Negative) Urine Ketones Negative mg/dL mg/dL (Negative) Ur Blood (Man) Negative (Negative) Urine Nitrate Negative (Negative) Urine Bilirubin Negative (Negative) Urine Urobilinogen 0.2 mg/dL mg/dL (<2.0) Ur Leukocyte Esterase Negative AMMON/UL AMMON/UL (NEGATIVE) U Random Total Protein 14 mg/dL mg/dL Urine Creatinine 90.7 mg/dL mg/dL Protein/Creat Ratio 2 0.15 mg/mg mg/mg (0-0.20) RPR Blood Type Antibody Screen 03/15/22 03/15/22 03/15/22 13:59 13:59 13:59 WBC 10.4 K/mm3 H K/mm3 (4.5-10.0) RBC 4.43 M/mm3 M/mm3 (4.2-5.4) Hgb 13.3 g/dL g/dL (12.0-15.0) Hct 39.3 % % (37.0-47.0) MCV 88.7 fl fl (80-100) MCH 30.0 pg pg (26-34) MCHC 33.8 g/dl g/dl (32-36) RDW 13.2 % % (11.5-14.5) Plt Count 248 k/mm3 k/mm3 (150-375) MPV 9.2 fl fl (7.4-10.4) Immature Gran % (Auto) 0.9 % H % (0-0.5) Neut % (Auto) 70.9 % % (45.5-73.1) Lymph % (Auto) 19.2 % % (18.3-44.2) Charles % (Auto) 6.9 % % (2.6-8.5) Eos % (Auto) 1.7 % % (0-4.4) Baso % (Auto) 0.4 % % (0.2-1.2) Lymph # (Auto) 1.99 K/mm3 K/mm3 (0.9-3.2) Charles # (Auto) 0.7 K/mm3 H K/mm3 (0.1-0.6) Eos # (Auto) 0.2 K/mm3 K/mm3 (0-0.3) Baso # (Auto) 0.0 K/mm3 K/mm3 (0.0-0.1) Abs Immat Gran (auto) 0.09 K/mm3 H K/mm3 (0.00-
[2022-03-16] VITALS (65 sets, daily range): BP systolic 119–163; BP diastolic 62–119; PULSE 79–128; TEMP 36.6–36.8; O2SAT 93–97
[2022-03-16] MEDS: MORPHINE SULFATE (*CRX) 4 MG/ML INJ 2 MG IV PUSH (03:58)
[2022-03-16] MEDS: HYDROcodone/acetaminophen (*CRX) 5-325 MG TABLET 1 TAB PO ×4 (08:35→21:40)
[2022-03-16] MEDS: CLINDAMYCIN 900 MG/D5W 50 ML 900 MG/50 ML PIGGYBACK 50 MG IVPB ×2 (08:36→17:43)
--- NOTE | 2022-03-16 09:35 | PC.NURSE ---
This nurse addressed the patient pain at 0935 and the patient was sleeping at this time .
[2022-03-16] MEDS: miSOPROStol 25 MCG TABLET VAGINAL ×3 (12:08→20:20)
[2022-03-16] MEDS: ONDANSETRON INJ 4 MG/2 ML VIAL IV PUSH (15:39)
[2022-03-16 16:03] LABS: Rapid Plasma Reagin Non-Reactive (NonReactive)
--- NOTE | 2022-03-16 19:36 | P.PNOB_ITS ---
OB - PN: Subj Subjective Date/time seen: 03/16/22 0745 Cat 1 tracing, occasional ctx, cervix int os cl/thick Will keep cervidil for the 12 hour total then start Cytotec 25ug q 4. She required Morphine for pain last evening. Will start Clindamycin IV for the tooth pain and [place]. OB - PN: Obj Data Labs 03/15/22 13:59 03/15/22 13:59 Labs: Laboratory Results - last 24 hr 03/15/22 13:59 RPR Non-reactive OB - PN A/P Time Spent With Patient Time: Total time spent is greater than 50% in coordination of care (as documented) at patient's floor/unit and/or counseling patient:
--- NOTE | 2022-03-16 19:38 | PM.OBPNLAB ---
Pain Control Date/time seen: 03/16/22 1115 Cat 1 tracing, bedside ultrasound performed to confirm position, confirmed cephalic, cerix closed. Continue plan for Cytotec.
[2022-03-17] VITALS (284 sets, daily range): BP systolic 97–162; BP diastolic 52–112; PULSE 80–126; RESP 14–16; TEMP 35.9–37.4; O2SAT 93–100
[2022-03-17] MEDS: OXYTOCIN 30 UNITS/NS 500 ML 30 UNITS/500 ML BAG IV CONT (01:05)
[2022-03-17] MEDS: LACTATED RINGERS 1,000 ML 125 ML IV CONT ×3 (01:06→19:50)
[2022-03-17] MEDS: HYDROcodone/acetaminophen (*CRX) 5-325 MG TABLET 1 TAB PO ×2 (01:59→05:40)
[2022-03-17] MEDS: CLINDAMYCIN 900 MG/D5W 50 ML 900 MG/50 ML PIGGYBACK 50 MG IVPB ×2 (02:00→10:13)
--- NOTE | 2022-03-17 07:28 | PM.OBPNVD ---
OB - PN: Subj Subjective Date/time seen: 03/17/22 07:28 Interval history: fht 125, cat 1, irreg ctx, SROM 0710, clear, cervix 1.5/60/-3, IUPC placed. Continue Pitocin. OB - PN: Obj Data Labs 03/15/22 13:59 03/15/22 13:59 Labs: Laboratory Results - last 24 hr 03/15/22 13:59 RPR Non-reactive OB - PN A/P Time Spent With Patient Time: Total time spent is greater than 50% in coordination of care (as documented) at patient's floor/unit and/or counseling patient:
--- NOTE | 2022-03-17 14:59 | PM.OBPNVD ---
OB - PN: Subj Subjective Date/time seen: 03/17/22 14:59 Interval history: 1330 fht 125 cat 1, 2.5/70/-3, Continue Pitocin. OB - PN: Obj Data Labs 03/15/22 13:59 03/15/22 13:59 Labs: Laboratory Results - last 24 hr 03/15/22 13:59 RPR Non-reactive OB - PN A/P Time Spent With Patient Time: Total time spent is greater than 50% in coordination of care (as documented) at patient's floor/unit and/or counseling patient:
[2022-03-17] MEDS: SODIUM CHLORIDE 0.9% IV 300 ML 600 ML I-UTERINE (20:23)
[2022-03-18] VITALS (38 sets, daily range): BP systolic 112–155; BP diastolic 58–111; PULSE 76–142; RESP 16–20; TEMP 36.6–37.7; O2SAT 94–100
[2022-03-18] MEDS: OXYTOCIN 30 UNITS/NS 500 ML 30 UNITS/500 ML BAG 125 UNITS IV CONT (01:40)
[2022-03-18] MEDS: miSOPROStol 200 MCG TABLET 1000 MCG RECTAL (01:41)
--- NOTE | 2022-03-18 01:48 | P.PCNOB_ITS ---
OB - Delivery Note Procedure Events: Gestational Hypertension Induction method: Per Misoprostol Protocol, Per Pitocin Protocol and Per Cervidil Protocol Delivery monitor: External FHT and External Uterine Route of delivery: Episiotomy description: None Laceration Description: Vaginal Delivery repair: chromic Specimen: Yes Quantitative Blood Loss (ml): 1,000 Anesthesia type: Epidural Disposition: Floor Narrative: Patient prepped draped usual manner this procedure. Maternal expulsive efforts readily delivered the vertex over intact perineum nuchal cord was noted and delivered through the rest of baby was delivered without difficulty. Placenta delivered as well. Right labial sulcus tear was bleeding and was rendered hemostatic using 2-0 chromic in a running interlocking manner to approximate this tissue. Also small perineal laceration was rendered hemostatic with a [id number] suture. Uterus was mildly atonic and once clots removed from the uterine cavity the bleeding significantly slowed to a normal amount. Alcira cota was given Pitocin through her IV as well as Cytotec rectally. Baby Weeks of gestation at delivery: 40 Infant gender: Male Weight (pounds): 7 Weight (ounces): 3 presentation: vertex Placenta delivery description: Spontaneous Cord Vessel Description: 3 Vessels, Nuchal Cord and Reduced score one minute: 8 score five minutes: 9 AMG Delivery Billing Delivery Delivery: Delivery Charge
[2022-03-18] MEDS: IBUPROFEN 600 MG TABLET PO ×3 (03:33→17:40)
[2022-03-18] MEDS: BENZOCAINE 20% AER SPR (*SP) 56 GM CAN 1 SPRAY TOPICAL (03:34)
[2022-03-18] MEDS: WITCH HAZEL 40 PADS 1 PAD TOPICAL (03:34)
[2022-03-18] MEDS: CLINDAMYCIN HCL 150 MG CAP 300 MG PO ×3 (05:54→17:40)
[2022-03-18] MEDS: BENZOCAINE 20% DENTAL GEL 9 GM TUBE 1 APPLIC BY MOUTH (05:54)
--- NOTE | 2022-03-18 07:25 | PC.NURSE ---
This patient states she wants to bottle feed formula for now due to being tired and not feeling ready to breastfeed even though she states she wants to. I offered to provide her with a pump for now and informed her that we highly recommend to start pumping within six hours after but the sooner the better. Patient states she will try later.
[2022-03-18 07:45] LABS: Hematocrit 29.3 % (37.0-47.0); Hemoglobin 9.8 g/dL (12.0-15.0)
[2022-03-18] MEDS: POLYSACCHARIDE IRON COMPLEX 150 MG CAPSULE PO ×2 (08:22→17:39)
[2022-03-18] MEDS: MULTIVIT/MIN/PREN/FOL AC/IRON TABLET 1 TAB PO (08:22)
[2022-03-18] MEDS: DOCUSATE SODIUM 100 MG CAPSULE PO ×2 (08:22→17:39)
[2022-03-18] MEDS: ACETAMINOPHEN 325 MG TABLET 650 MG PO ×3 (08:22→20:55)
--- NOTE | 2022-03-18 14:21 | PM.OBPNVD ---
OB - PN: Subj Subjective Date/time seen: 03/18/22 14:21 Overall doing well this afternoon. No specific complaints or concerns other than throat pain. Vital signs stable afebrile Abdomen positive bowel sounds soft. Uterus appropriately tender. Lab: Decrease in hemoglobin noted, expected Assessment: 1. day 1 status post vaginal delivery 2. Hypertension... no significant abnormalities 3. Oral abscess... continue clindamycin Plan: 1. Routine post care 2. Continue to monitor blood pressure 3. Continue clindamycin for oral abscess 4. Re-initiate propranolol therapy for history of tachycardia OB - PN: Obj Data Labs 03/18/22 07:25 03/15/22 13:59 Labs: Laboratory Results - last 24 hr 03/18/22 07:25 Hgb 9.8 L D Hct 29.3 L OB - PN A/P Time Spent With Patient Time: Total time spent is greater than 50% in coordination of care (as documented) at patient's floor/unit and/or counseling patient:
[2022-03-18] MEDS: PROPRANOLOL HCL 20 MG TABLET PO (20:55)
[2022-03-19] VITALS (9 sets, daily range): BP systolic 126–151; BP diastolic 70–98; PULSE 106–120; RESP 16–18; TEMP 36.7–36.9; O2SAT 97–98
[2022-03-19] MEDS: CLINDAMYCIN HCL 150 MG CAP 300 MG PO ×4 (05:06→23:42)
[2022-03-19] MEDS: ACETAMINOPHEN 325 MG TABLET 650 MG PO ×3 (05:07→19:20)
[2022-03-19 05:22] LABS: Hematocrit 27.7 % (37.0-47.0)
[2022-03-19] MEDS: DOCUSATE SODIUM 100 MG CAPSULE PO ×2 (07:31→16:08)
[2022-03-19] MEDS: POLYSACCHARIDE IRON COMPLEX 150 MG CAPSULE PO ×2 (07:31→16:08)
[2022-03-19] MEDS: IBUPROFEN 600 MG TABLET PO ×4 (07:31→23:42)
[2022-03-19] MEDS: MULTIVIT/MIN/PREN/FOL AC/IRON TABLET 1 TAB PO (09:05)
[2022-03-19] MEDS: PROPRANOLOL HCL 20 MG TABLET PO ×2 (09:05→21:37)
--- NOTE | 2022-03-19 11:00 | PC.NURSE ---
Breast pump provided due to maternal preference. Instructions given on cleaning, care, usage, that there should be no pain, pumping schedule for milk production, collection, and storage of human milk. Patient was assessed for correct placement, flange size, to pump for comfort and nipple stretching/stimulation for adequate milk production every 3 hours (8 times in 24 hours) 1-2 times at night.
--- NOTE | 2022-03-19 12:28 | PM.OBPNVD ---
OB - PN: Subj Subjective Date/time seen: 03/19/22 12:28 day 2. Overall feeling better but still uncomfortable and is borderline this point. Plan: 1. Will hold on discharge until tomorrow. OB - PN: Obj Data Labs 03/19/22 05:16 03/15/22 13:59 Labs: Laboratory Results - last 24 hr 03/19/22 05:16 Hgb 9.0 L Hct 27.7 L OB - PN A/P Time Spent With Patient Time: Total time spent is greater than 50% in coordination of care (as documented) at patient's floor/unit and/or counseling patient:
--- NOTE | 2022-03-19 12:30 | PM.OBDSVD ---
DS: Admitting Diagnosis Discharge Date 03/20/2022 Admitting Diagnosis DS: Discharge Diagnosis Discharge Diagnosis (1) , delivered: Code(s): O80 - Encounter for full-term uncomplicated delivery Status: Acute OB - DS: Summary OB Procedures : None OB Procedures Intrapartum: Spontaneous Vag Delivery OB Procedures: : None Time Spent with Patient Time attestation: Total time spent providing and/or coordinating discharge services: DS: Data Data Completed and Pending Pending studies at discharge: Pending at discharge 03/18/22 01:16 Surgical [PTH] Routine Labs on day of discharge: Labs from last 24 hours 03/19/22 05:16 Hgb 9.0 L Hct 27.7 L Discharge Plan Discharge Discharging Clinician: Oscar Grayson Patient Disposition: Home, Self-Care Activity: as tolerated Diet: as tolerated Patient Instructions: Antibiotic Form Stand Alone Forms: General Discharge Information Follow-up/Referrals: Anderson Amado MD [Physician] - 1 Week Discharge Medications: New ibuprofen 600 mg Tablet 600 mg PO Q6H PRN (Reason: Cramping) Qty: 30 0RF clindamycin HCl 150 mg Capsule 300 mg PO Q6HR Qty: 28 0RF Continued prenat.vits,jessie,gmg-rzhw-imbyx Tablet 1 tablet PO DAILY propranolol 20 mg tablet 20 mg PO BID Rx Instructions: TIFFANIE ONE TABLET BY MOUTH EVERY TWELVE HOURS famotidine 20 mg tablet 20 mg PO DAILY Qty: 30 0RF Date of admission: 03/15/22 13:25 Primary Care Provider: Damon Cuello Admitting Provider: Anderson Amado Attending physician on admission: Anderson Amado Condition: Stable
[2022-03-19] MEDS: BENZOCAINE/MENTHOL (*BKC) 18 EA LOZENGE 1 LOZENGE PO (13:16)
[2022-03-19] MEDS: BENZONATATE 100 MG CAPSULE PO ×2 (13:16→17:52)
[2022-03-20] MEDS: ACETAMINOPHEN 325 MG TABLET 650 MG PO (03:57)
[2022-03-20 04:00] VITALS: BP 144/97
[2022-03-20 08:05] VITALS: BP 137/86; PULSE 114; RESP 16; TEMP 37; O2SAT 98
[2022-03-20] MEDS: MULTIVIT/MIN/PREN/FOL AC/IRON TABLET 1 TAB PO (08:34)
[2022-03-20] MEDS: DOCUSATE SODIUM 100 MG CAPSULE PO (08:34)
[2022-03-20] MEDS: POLYSACCHARIDE IRON COMPLEX 150 MG CAPSULE PO (08:34)
[2022-03-20] MEDS: CLINDAMYCIN HCL 150 MG CAP 300 MG PO (08:34)
[2022-03-20 08:35] VITALS: PULSE 100
[2022-03-20] MEDS: BENZONATATE 100 MG CAPSULE PO (08:35)
[2022-03-20] MEDS: PROPRANOLOL HCL 20 MG TABLET PO (08:35)
[2022-03-20] MEDS: BENZOCAINE 20% DENTAL GEL 9 GM TUBE 1 APPLIC BY MOUTH (08:38)
[2022-03-20 09:25] LABS: Influenza A QL RT-PCR Negative (Negative); Influenza B QL RT-PCR Negative (Negative); SARS-CoV-2 RNA PCR Negative
--- NOTE | 2022-03-20 10:49 | PM.OBPNVD ---
OB - PN: Subj Subjective Date/time seen: 03/20/22 10:49 Interval history: She denies headache scotomata or RUQ pain. She has cough, and achy. Decreasing lochia. Patient comments: pain well controlled, tolerating diet and other (Decreasing lochia.) baby status: doing well and nursing well feeding status: breast and bottle feeding OB - PN: Obj Data Labs 03/19/22 05:16 03/15/22 13:59 Labs: Laboratory Results - last 24 hr 03/20/22 08:43 Influenza A (RT-PCR) Negative Influenza B (RT-PCR) Negative SARS-CoV-2 RNA (RT-PCR) Negative OB - PN A/P Assessment and Plan (1) Vaginal delivery: Code(s): O80 - Encounter for full-term uncomplicated delivery Status: Acute Assessment and Plan: Post day 2. Labile blood pressures, normal this am. No signs or symptoms of pre-eclampsia. Doing well. Covid and flu checked neg. Discharge to day. Discharge precautions discussed. Instructed to get appt with the dentist. Plan day: 2 Plan: discharge home and other Comments: Patient doing well. Follow up 1 weeks. Discharge instructions provided. Answered her questions regarding the perineal sutures. Time Spent With Patient Time: Total time spent is greater than 50% in coordination of care (as documented) at patient's floor/unit and/or counseling patient: Time with patient: less than 15 minutes Review of Systems Review of Systems: All systems reviewed & are unremarkable except as noted in HPI and below Constitutional: Constitutional: Reports no additional constitutional complaints Cardiovascular: Cardiovascular: Denies dyspnea Respiratory: Respiratory: Denies dyspnea Gastrointestinal: Gastrointestinal: Reports no additional gastrointestinal complaints and Denies abdominal pain Genitourinary: Genitourinary: Reports no additional female genitourinary complaints Exam Psych: Affect: normal affect Other: Abd: fundus firm below umbilicus, nontender Perineum: healing Ext: nontender
[2022-03-20] MEDS: MEASLES,MUMPS,RUBELLA VACCINE 0.5 ML VIAL SUB-Q (11:23)
--- NOTE | 2022-03-20 12:00 | PC.NURSE ---
Patient viewed the discharge video Mother & Baby Care, The First Two Weeks . Patient was given the opportunity and encouraged to ask questions. Patient verbalized understanding of information shared and has been given the mother/baby guide for home reference.
== END 2022-03-20 13:21 | disposition home or self-care (01) | DRG 807 ==
LOC: ANHOB2 03-20 10:46 → ANHLDR 03-21 09:31 → ANHOB2 03-21 09:31
PROVIDERS: Admitting Provider Obstetrics & Gynecology; PCP Family Medicine; Visit Provider Obstetrics & Gynecology
DX: O13.4 Gestational [pregnancy-induced] hypertension without significant proteinuria, complicating childbirth (principal); Z37.0 Single live birth; O70.0 First degree perineal laceration during delivery; O69.81X0 Labor and delivery complicated by cord around neck, without compression, not applicable or unspecified; O76 Abnormality in fetal heart rate and rhythm complicating labor and delivery; Z3A.39 39 weeks gestation of pregnancy; Z87.891 Personal history of nicotine dependence
CPT/HCPCS: 36415; 80053; 81003; 82570; 84156; 84550; 85014; 85018; 85025; 86592; 86850; 86900; 86901; 87086; 87088; 87636; 88307; 90710; A9270; J0131; J2270; J2405; J2590; J2795; J7030; J7120

== ENCOUNTER 2022-03-23 15:50 | Outpatient (CLI) | payer OTHER, MEDICAID, SELFPAY ==
--- NOTE | ~2022-03-23 | XR_ITS ---
XR chest 2V 03/23/2022 16:29 Indication: Productive cough and congestion. Chills. Shortness of breath. Procedure: 2 view chest Comparison: 02/12/2016 Findings: Mild cardiomegaly. There is lingular airspace disease. No significant effusion or pneumotho rax. No edema. Impression: 1: Lingular airspace disease may represent atelectasis or pneumonia. 2: Cardiomegaly. Reviewed, dictated and finalized at location A. [facility] Impression: 1: Lingular airspace disease may represent atelectasis or pneumonia. 2: Cardiomegaly.
[2022-03-23 16:09] LABS: Hematocrit 29.6 % (35.0-49.0); Hemoglobin 9.7 g/dL (12.0-15.0); Mean Corpuscular HGB Conc 32.8 g/dL (32.0-36.0); Mean Corpuscular Hemoglobin 29.9 pg (27.0-31.0); Mean Corpuscular Volume 91.4 fL (78.0-102.0); Platelet Count Result 401 K/mm3 (150-420); Red Blood Count 3.24 M/mm3 (4.20-5.40); White Blood Count 9.3 K/mm3 (4.8-10.8)
[2022-03-23 16:45] LABS: Influenza A QL RT-PCR Negative (Negative); Influenza B QL RT-PCR Negative (Negative); SARS-CoV-2 RNA PCR Negative (Negative)
[2022-03-23 16:49] LABS: RSV RNA, RT-PCR Negative (Negative)
[2022-03-23 16:51] LABS: Alanine Aminotransferase 31 U/L (14-59); Albumin Level 2.5 g/dL (3.4-5.0); Alkaline Phosphatase 178 U/L (46-116); Anion Gap 6 mmol/L (8-16); Aspartate Amino Transferase 15 U/L (15-37); Bilirubin,Total 0.2 mg/dL (0.00-1.00); Blood Urea Nitrogen 13 mg/dL (7-18); Calcium 8.1 mg/dL (8.5-10.1); Carbon Dioxide 27 mmol/L (21-32); Chloride 105 mmol/L (98-108); Estimated Glomerular Filt Rate > 60; Glucose 87 mg/dL (70-99); NT Pro B Type Natriuretic Pept 1242 pg/mL (0-125); Osmolality Calculated 285 mOsm/kg (285-295); Sodium 138 mmol/L (136-145); Total Protein 6.1 g/dL (6.4-8.2)
[2022-03-23 18:14] LABS: Add Urine Microscopic? YES; Appearance Urine Clear (Clear); Bilirubin Urine Negative (Negative); Blood Urine 3+ (Negative); Color Urine Light Yellow (Yellow); Glucose Urine UA Negative (Negative); Ketones Urine Negative (Negative); Leukocyte Esterase Ur Trace (Negative); Nitrate Urine Negative (Negative); Protein Urine Negative (Negative); Urobilinogen Urine 0.2 mg/dL (0.2-1.0)
[2022-03-23 18:22] LABS: Creatinine Urine 141.84 mg/dL (40-278); MALB Creatinine Ratio 35.3 mg/g (0-30); Microalbumin Urine Random 50.1 mg/L
[2022-03-23 18:32] LABS: Squamous Epithelial Cell Urine None seen /hpf (Few); WBC Urine 0-3 /hpf (0-3)
[2022-03-23 18:33] LABS: Bacteria Urine Trace /hpf
== END 2022-03-23 15:51 | disposition home or self-care (01) ==
LOC: CHSLAB 15:52
PROVIDERS: PCP Family Medicine; Visit Provider Family Medicine
DX: E11.9 Type 2 diabetes mellitus without complications (principal); R68.89 Other general symptoms and signs; R91.8 Other nonspecific abnormal finding of lung field; I51.7 Cardiomegaly
CPT/HCPCS: 36415; 71046; 80053; 81001; 82043; 83880; 85027; 87637

== ENCOUNTER 2022-03-25 17:36 | Emergency (ER) | payer OTHER, MEDICAID, SELFPAY ==
[2022-03-25 17:42] VITALS: BP 133/90; PULSE 102; RESP 16; TEMP 36.6; O2SAT 96
[2022-03-25] MEDS: SODIUM CHLORIDE 0.9% IV 1,000 ML 999 ML IV CONT (18:40)
[2022-03-25] MEDS: METOCLOPRAMIDE HCL INJ 10 MG/2 ML VIAL IV PUSH (18:41)
--- NOTE | 2022-03-25 18:44 | ED.HA ---
HPI - Headache General Chief Complaint: Headache Stated Complaint: migraine started this morning Source: patient Mode of arrival: ambulatory Limitations: no limitations History of Present Illness HPI Narrative: This is a 27-year-old female with history of migraines complaints today of a typical migraine headache throbbing light sensitive and sensitive to noise with no fever chills no nausea or vomiting no chest pain no shortness of breath. Recently diagnosed with some pneumonia and is currently on antibiotics. Vitals are stable is not short of breath no audible wheezing. MD elicited complaint: headache and migraine Onset (ago): hour(s) Onset description: gradually Location: diffuse Severity: moderate Pain scale (0-10): 8 Quality & Timing: throbbing and pulsatile Relieving factors: rest Related Data Home Medications Medication Instructions Recorded Confirmed propranolol 20 mg tablet 20 mg PO BID 03/15/22 03/15/22 Allergies Allergy/AdvReac Type Severity Reaction Status Date / Time amoxicillin [Augmentin] Allergy Intermediate Unknown Verified 03/23/22 08:29 cefaclor [Ceclor] Allergy Intermediate Unknown Verified 03/23/22 08:29 clavulanic acid [Augmentin] Allergy Intermediate Unknown Verified 03/23/22 08:29 Review of Systems Review of Systems: All systems reviewed & are unremarkable except as noted in HPI and below PMFSH Past Medical History Medical History Frequent UTI Gestational hypertension affecting first Nicotine dependence, cigarettes, uncomplicated Quit 2021 Overweight Positive depression screening Seasonal allergies Surgical History Surgical History Abdominal hernia 1998 Family History Family History Mother Hypertension Blood clotting disorder Father Hypertension Grandparent Cancer Hypertension Blood clotting disorder Social History Social History Smoking status: Light tobacco smoker Tobacco type: cigarettes Second hand tobacco smoke exposure: No Smoking end date: 08/25/21 Alcohol intake: never Substance use: former Substance use type: does not use Lack of Transportation: No Lack of Food: Never True Current Housing: I Have Housing Concerned About Future Housing: No Difficulty Paying Gas/Electric Bills: No Difficulty Paying for Meds: No Currently Unemployed: No Education: High School Diploma/GED Difficulty w/ Childcare or Family Care: No Gender identity (if verbalized by the patient): Female Spiritual care concerns: No Exam Const: General: healthy appearing Nutritional Appearance: well nourished Orientation/consciousness: patient oriented x3 Limitations: no limitations HENMT: Head: normal to inspection Ears: external ears normal Face/Nose/Sinus: Normal external nose present Face and sinus: normal facial exam Mouth: Yes Normal oral and palatal mucosa present Eyes: Conjunctivae: conjunctivae normal Pupils: Equal, round and reactive pupils present EOM: EOMs intact bilaterally Neck: Neck: normal visual inspection, no lymphadenopathy and no meningeal signs Resp: Effort & Inspection: normal respiratory effort Auscultation: clear to auscultation bilaterally Cardio: Rate: regular rate GI: GI Palp: Yes Soft to palpation Auscultation: normal bowel sounds : General: Yes bladder normal to palpation Urinary Catheter: Urinary Catheter: patent and draining Back/Spine/Pelvis: Back: no CVA tenderness Skin: General skin exam: normal color Rashes: no rashes Wounds: no wounds Neuro: General: patient oriented x3 and moves all extremities Cranial nerves: Yes Nystagmus not present Speech: normal speech Extrem: General: normal to inspection, no clubbing, cyanosis or edema and no pedal edema Ps
[2022-03-25] MEDS: KETOROLAC (*BKC) 60 MG/2 ML VIAL IM (18:47)
[2022-03-25 19:38] VITALS: BP 133/83; PULSE 77; RESP 20; TEMP 36.8; O2SAT 100
--- NOTE | 2022-04-17 11:30 | PC.NURSE ---
03/25/22 at 1940 pts iv was d/c'd without difficulty no bleeding and iv catheter all intact pts iv fluids completely infused pt received NS 1000mls
== END 2022-03-25 19:40 | disposition home or self-care (01) ==
PROVIDERS: Emergency Provider Emergency Medicine; PCP Family Medicine
DX: G43.909 Migraine, unspecified, not intractable, without status migrainosus (principal); F17.210 Nicotine dependence, cigarettes, uncomplicated
CPT/HCPCS: 96361; 96372; 96374; 99284; J1885; J2765; J7030

== ENCOUNTER 2022-03-28 15:45 | Outpatient (CLI) | payer OTHER, MEDICAID, SELFPAY ==
--- NOTE | ~2022-03-28 | XR_ITS ---
EXAMINATION: XR chest 2V Exam Date/Time: 03/28/2022 17:10 [facility] HISTORY: Recent pneumonia; continued SOB, cough. Comparison: 03/23/2022. RESULT: Lines, tubes, and devices: None. Lungs and pleura: Persistent subsegmental lingular airspace disease. Cardiomediastinal silhouette: Stable. Dilated central pulmonary arteries. Other: No acute osseous or upper abdominal finding. IMPRESSION: Unchanged lingular airspace disease. Dilated central pulmonary arteries, as can be seen with pulmonar y arterial hypertension. Reviewed, dictated and finalized at location K. [facility] IMPRESSION: Unchanged lingular airspace disease. Dilated central pulmonary arteries, as can be seen with pulmonary arterial hypertension.
[2022-03-28 16:51] LABS: Hematocrit 36.6 % (35.0-49.0); Hemoglobin 11.9 g/dL (12.0-15.0); Immature Platelet Fraction Pct 1.1 % (1.0-7.0); Mean Corpuscular HGB Conc 32.5 g/dL (32.0-36.0); Mean Corpuscular Hemoglobin 29.2 pg (27.0-31.0); Mean Corpuscular Volume 89.7 fL (78.0-102.0); Mean Platelet Volume 8.5 fl (9.2-11.8); Platelet Count Result 631 K/mm3 (150-420); Red Blood Count 4.08 M/mm3 (4.20-5.40); Red Cell Distribution Width 12.4 % (11.6-14.4); White Blood Count 7.6 K/mm3 (4.8-10.8)
[2022-03-28 17:14] LABS: Alanine Aminotransferase 19 U/L (14-59); Alkaline Phosphatase 162 U/L (46-116); Anion Gap 8 mmol/L (8-16); Aspartate Amino Transferase 19 U/L (15-37); Bilirubin,Total 0.2 mg/dL (0.00-1.00); Blood Urea Nitrogen 14 mg/dL (7-18); Calcium 8.7 mg/dL (8.5-10.1); Carbon Dioxide 28 mmol/L (21-32); Chloride 105 mmol/L (98-108); Estimated Glomerular Filt Rate > 60; Glucose 106 mg/dL (70-99); NT Pro B Type Natriuretic Pept 50 pg/mL (0-125); Osmolality Calculated 292 mOsm/kg (285-295); Potassium 4.1 mmol/L (3.5-5.1); Sodium 141 mmol/L (136-145)
== END 2022-03-28 15:46 | disposition home or self-care (01) ==
PROVIDERS: PCP Family Medicine; Visit Provider Family Medicine
DX: R68.89 Other general symptoms and signs (principal); R91.8 Other nonspecific abnormal finding of lung field
CPT/HCPCS: 36415; 71046; 80053; 83880; 85027; 85055

== ENCOUNTER 2022-03-31 12:19 | Outpatient (CLI) | payer OTHER, MEDICAID, SELFPAY ==
--- NOTE | 2022-03-31 12:23 | ECHO_ITS ---
Patient Info Name: Chivo Mejia Age: 27 years : 1995 Gender: Female Ht: 66 in Wt: 248 lbs BSA: 2.34 m2 HR: 93 bpm BP: 97 / 69 mmHg Heart Rhythm: Sinus Rhythm Technical Quality: Fair Exam Date: 03/31/2022 1:11 PM Exam Location: [facility] Patient Status: Outpatient Admit Date: 03/31/2022 Staff Ordering Physician: Damon Cuello DO Electroencephalograph Technologist: Emma Dugan RDCS Attending Provider: Damon Cuello DO Referring Physician: Cuate BAER; Exam Type: CA echo doppler color flow Study Info Indications I10 - Essential (primary) hypertension Complete two-dimensional, color flow and Doppler transthoracic echocardiogram is performed. Summary 1. Complete two-dimensional, color flow and Doppler transthoracic echocardiogram is performed. 2. Left ventricular chamber dimension is normal. 3. Left ventricular systolic function is normal, estimated at 60-65%. 4. There is mild concentric increased left ventricular wall thickness. 5. The left ventricular diastolic function is normal. 6. E/e' 10 is minimally elevated. 7. There is trace tricuspid valve regurgitation. 8. No pulmonary hypertension, estimated pulmonary arterial systolic pressure is 27 mmHg. 9. There is trace pulmonic regurgitation. Left Ventricle E/e' 10 is minimally elevated. Left ventricular chamber dimension is normal. Left ventricular systolic function is normal, estimated at 60-65%. There is mild concentric increased left ventricular wall thickness. The left ventricular diastolic function is normal. Right Ventricle Right ventricular systolic function is normal and with normal TAPSE 1.9 cm. Right ventricular chamber dimension is normal. Left Atria Left atrial chamber dimension is normal. Right Atria Right atrial chamber dimension is normal. Aortic Valve The aortic valve is trileaflet. There is no aortic valve stenosis. There is no aortic valve regurgitation. Pulmonic Valve There is trace pulmonic regurgitation. Mitral Valve There is no mitral valve stenosis. There is no mitral valve regurgitation. Tricuspid Valve There is trace tricuspid valve regurgitation. No pulmonary hypertension, estimated pulmonary arterial systolic pressure is 27 mmHg. Pericardium/Pleural There is no pericardial effusion. Inferior Vena Cava Normal inferior vena cava with >50% collapse upon inspiration consistent with normal right atrial pressure, 5 mmHg. Aorta The aortic root size at the sinus of Valsalva is normal. Left Ventricular Outflow Tract Name Value Normal LVOT 2D LVOT Diameter 2.0 cm LVOT Doppler LVOT Peak Velocity 89 cm/s LVOT Peak Gradient 3 mmHg LVOT Mean Gradient 2 mmHg LVOT VTI 15 cm LVOT VTI/AV VTI Ratio 0.6 LVOT Stroke Volume 49 ml Pulmonic Valve Name Value Normal
== END 2022-03-31 12:20 | disposition home or self-care (01) ==
LOC: CHSIMG 12:20
PROVIDERS: PCP Family Medicine; Visit Provider Family Medicine
DX: I10 Essential (primary) hypertension (principal)
CPT/HCPCS: 93306

== ENCOUNTER 2022-06-22 14:52 | Emergency (ER) | payer OTHER, SELFPAY ==
--- NOTE | ~2022-06-22 | XR_ITS ---
. XR hand RT min 3V 06/22/2022 15:25 INDICATION: Right first finger pain PROCEDURE: 3 views right hand COMPARISON: 12/10/2027 FINDINGS: Fracture, dislocation or subluxation is not identified. The soft tissues appear within norm al limits. No foreign bodies are identified. IMPRESSION: 1: NO ACUTE BONE OR JOINT ABNORMALITY IDENTIFIED. Reviewed, dictated and finalized at location L.
[2022-06-22 14:54] VITALS: BP 120/66; PULSE 102; RESP 18; TEMP 36.6; O2SAT 96
[2022-06-22 15:04] VITALS: BP 102/86; PULSE 102; RESP 16; TEMP 36.6; O2SAT 96
[2022-06-22] MEDS: IBUPROFEN 600 MG TABLET PO (15:10)
--- NOTE | 2022-06-22 15:40 | ED.UPPEXIN ---
HPI - Extremity Injury (Upper) General Chief Complaint: Extremity Injury, Upper Stated Complaint: right thumb pain Time Seen by Provider: 06/22/22 14:55 Source: patient Mode of arrival: ambulatory Limitations: no limitations History of Present Illness HPI narrative: this is a 27-year-old female that smashed her thumb between to cart while work and causing some pain with mild swelling with no bruising has good range of motion with no numbness or tingling with no other injuries. complaint: injury to: right Onset (ago): hour(s) Other Extremity Injury: Right: fingers ( thumb injury) Handedness: right Place: work Severity: mild Severity scale (1-10): 4 Related Data Allergies Allergy/AdvReac Type Severity Reaction Status Date / Time amoxicillin [Augmentin] Allergy Intermediate Vomiting Verified 06/22/22 15:03 cefaclor [Ceclor] Allergy Intermediate Unknown Verified 06/22/22 15:03 clavulanic acid [Augmentin] Allergy Intermediate Unknown Verified 06/22/22 15:03 Review of Systems Review of Systems: All systems reviewed & are unremarkable except as noted in HPI and below PMFSH Past Medical History Medical History Frequent UTI Gestational hypertension affecting first History of vaginal delivery Nicotine dependence, cigarettes, uncomplicated Quit 2021 Overweight Positive depression screening Seasonal allergies Surgical History Surgical History Abdominal hernia 1998 Family History Family History Mother Hypertension Blood clotting disorder Father Hypertension Grandparent Cancer Hypertension Blood clotting disorder Social History Social History Smoking status: Light tobacco smoker Tobacco type: cigarettes Second hand tobacco smoke exposure: No Smoking end date: 08/25/21 Alcohol intake: never Substance use: former Substance use type: does not use Lack of Transportation: No Lack of Food: Never True Current Housing: I Have Housing Concerned About Future Housing: No Difficulty Paying Gas/Electric Bills: No Difficulty Paying for Meds: No Currently Unemployed: No Education: High School Diploma/GED Difficulty w/ Childcare or Family Care: No Gender identity (if verbalized by the patient): Female Spiritual care concerns: No Exam Const: General: healthy appearing Nutritional Appearance: well nourished Orientation/consciousness: patient oriented x3 Limitations: no limitations HENMT: Head: normal to inspection Eyes: Conjunctivae: conjunctivae normal Pupils: Equal, round and reactive pupils present EOM: EOMs intact bilaterally Neck: Neck: normal visual inspection Chest: Chest palpation & inspection: normal inspection of the chest Resp: Effort & Inspection: normal respiratory effort Auscultation: clear to auscultation bilaterally Cardio: Rate: regular rate Rhythm: regular rhythm Skin: General skin exam: normal color Rashes: no rashes Wounds: wounds noted Neuro: General: patient oriented x3 Cranial nerves: Yes Nystagmus not present Extrem: General: normal to inspection Psych: Mental Status: mental status grossly normal Affect: normal affect Course Course Emergency Course: Reassessment patient after receiving Motrin symptoms have improved, x-ray performed and reviewed which shows no acute fractures. Vital Signs Vital signs: Vital Signs Temperature 36.6 C 06/22/22 14:54 Pulse Rate 102 H 06/22/22 14:54 Respiratory Rate 18 06/22/22 14:54 Blood Pressure 120/66 06/22/22 14:54 Pulse Oximetry 96 06/22/22 14:54 Oxygen Delivery Room Air 06/22/22 14:54 Temperature 36.6 C 06/22/22 15:04 Pulse Rate 102 H 06/22/22 15:04 Respiratory Rate 16 06/22/22 15:04 Blood Pressure 102/86 06/22/22 1
[2022-06-22 15:52] VITALS: BP 120/86; PULSE 102; RESP 16; TEMP 36.6; O2SAT 96
== END 2022-06-22 15:52 | disposition home or self-care (01) ==
PROVIDERS: Emergency Provider Emergency Medicine; PCP Family Medicine
DX: S63.601A Unspecified sprain of right thumb, initial encounter (principal); F17.210 Nicotine dependence, cigarettes, uncomplicated; W23.0XXA Caught, crushed, jammed, or pinched between moving objects, initial encounter; Y99.0 Civilian activity done for income or pay
CPT/HCPCS: 73130; 99283; A9270

== ENCOUNTER 2022-08-01 10:57 | Outpatient (CLI) | payer OTHER, MEDICAID, SELFPAY ==
[2022-08-01 11:12] LABS: Basophils Absolute Auto 0.05 K/mm3 (0.00-0.10); Basophils Percent Auto 1.1 % (0.0-1.0); Eosinophils Absolute Auto 0.13 K/mm3 (0.02-0.50); Hematocrit 43.5 % (35.0-49.0); Hemoglobin 13.6 g/dL (12.0-15.0); Immature Granulocyte Absolute 0.01 K/mm3 (0.00-0.00); Immature Granulocyte Percent A 0.2 % (0.0-0.0); Lymphocytes Absolute Auto 1.93 K/mm3 (1.10-4.50); Lymphocytes Percent Auto 44.3 % (18.0-42.0); Mean Corpuscular HGB Conc 31.3 g/dL (32.0-36.0); Mean Corpuscular Hemoglobin 25.9 pg (27.0-31.0); Mean Corpuscular Volume 82.7 fL (78.0-102.0); Mean Platelet Volume 9.1 fl (9.2-11.8); Monocytes Absolute Auto 0.27 K/mm3 (0.10-0.90); Monocytes Percent Auto 6.2 % (2.0-11.0); Neutrophils Percent Auto 45.2 % (50.0-70.0); Platelet Count Result 316 K/mm3 (150-420); Red Blood Count 5.26 M/mm3 (4.20-5.40); Red Cell Distribution Width 14.1 % (11.6-14.4); White Blood Count 4.4 K/mm3 (4.8-10.8)
--- NOTE | 2022-08-01 11:12 | ECG_ITS ---
Measurements Intervals [place] Rate: 80 P: 48 W[place]: 167 QRS: 79 QRSD: 84 T: 38 QT: 385 QTc: 447 Interpretive Statements SINUS RHYTHM NORMAL ECG NO PREVIOUS ECG AVAILABLE FOR COMPARISON Electronically Signed On 08-02-2022 11:50:00 CDT by Yonatan Engle M.D.
[2022-08-01 11:21] LABS: Hemoglobin A1C 5.4 % (<5.7)
[2022-08-01 12:11] LABS: Alanine Aminotransferase 39 U/L (14-59); Albumin Level 3.6 g/dL (3.4-5.0); Alkaline Phosphatase 101 U/L (46-116); Anion Gap 9 mmol/L (8-16); Aspartate Amino Transferase 17 U/L (15-37); Bilirubin,Total 0.4 mg/dL (0.00-1.00); Blood Urea Nitrogen 14 mg/dL (7-18); Calcium 8.7 mg/dL (8.5-10.1); Carbon Dioxide 26 mmol/L (21-32); Chloride 107 mmol/L (98-108); Cholesterol 159 mg/dL (0-200); Estimated Glomerular Filt Rate > 60; Glucose 90 mg/dL (70-99); HDL Direct 36 mg/dL (40-60); LDL Cholesterol Calculated 113 mg/dL (<130); Osmolality Calculated 294 mOsm/kg (285-295); Potassium 4.4 mmol/L (3.5-5.1); Sodium 142 mmol/L (136-145); Thyroid Stimulating Hormone 1.01 uIU/mL (0.36-3.74); Triglycerides 48 mg/dL (0-150)
== END 2022-08-01 10:58 | disposition home or self-care (01) ==
LOC: CHSLAB 11:00
PROVIDERS: PCP Family Medicine; Visit Provider Nurse Practitioner Family
DX: R53.83 Other fatigue (principal); R63.2 Polyphagia; R63.1 Polydipsia; R35.0 Frequency of micturition; R60.9 Edema, unspecified
CPT/HCPCS: 36415; 80053; 80061; 83036; 84443; 85025; 93005

== ENCOUNTER 2022-11-10 09:55 | Outpatient (CLI) | payer OTHER, SELFPAY ==
[2022-11-10 10:20] LABS: Basophils Absolute Auto 0.04 K/mm3 (0.00-0.10); Basophils Percent Auto 0.7 % (0.0-1.0); Eosinophils Absolute Auto 0.25 K/mm3 (0.02-0.50); Eosinophils Percent Auto 4.2 % (1.0-6.0); Hematocrit 43.4 % (35.0-49.0); Hemoglobin 14.1 g/dL (12.0-15.0); Immature Granulocyte Absolute 0.01 K/mm3 (0.00-0.00); Immature Granulocyte Percent A 0.2 % (0.0-0.0); Lymphocytes Absolute Auto 1.98 K/mm3 (1.10-4.50); Lymphocytes Percent Auto 33.6 % (18.0-42.0); Mean Corpuscular HGB Conc 32.5 g/dL (32.0-36.0); Mean Corpuscular Hemoglobin 27.1 pg (27.0-31.0); Mean Corpuscular Volume 83.3 fL (78.0-102.0); Mean Platelet Volume 9.1 fl (9.2-11.8); Monocytes Absolute Auto 0.36 K/mm3 (0.10-0.90); Monocytes Percent Auto 6.1 % (2.0-11.0); Neutrophils Absolute Auto 3.3 K/mm3 (1.7-7.2); Neutrophils Percent Auto 55.2 % (50.0-70.0); Platelet Count Result 344 K/mm3 (150-420); Red Blood Count 5.21 M/mm3 (4.20-5.40); Red Cell Distribution Width 13.6 % (11.6-14.4); White Blood Count 5.9 K/mm3 (4.8-10.8)
[2022-11-10 10:37] LABS: Alanine Aminotransferase 33 U/L (14-59); Albumin Level 3.4 g/dL (3.4-5.0); Alkaline Phosphatase 99 U/L (46-116); Anion Gap 12 mmol/L (8-16); Aspartate Amino Transferase 18 U/L (15-37); Bilirubin,Total 0.3 mg/dL (0.00-1.00); Blood Urea Nitrogen 11 mg/dL (7-18); Calcium 9.1 mg/dL (8.5-10.1); Carbon Dioxide 20 mmol/L (21-32); Chloride 106 mmol/L (98-108); Estimated Glomerular Filt Rate > 60; Glucose 109 mg/dL (70-99); Osmolality Calculated 286 mOsm/kg (285-295); Potassium 4.2 mmol/L (3.5-5.1); Sodium 138 mmol/L (136-145); Total Protein 6.5 g/dL (6.4-8.2)
[2022-11-10 15:39] LABS: Hemoglobin A1C 5.5 % (<5.7)
== END 2022-11-10 09:56 | disposition home or self-care (01) ==
LOC: CHSLAB 09:56
PROVIDERS: PCP Nurse Practitioner Family; Visit Provider Nurse Practitioner Family
DX: M79.10 Myalgia, unspecified site (principal); M25.50 Pain in unspecified joint; E66.3 Overweight; R63.1 Polydipsia; R35.0 Frequency of micturition; R63.2 Polyphagia
CPT/HCPCS: 36415; 80053; 83036; 85025; 86038

== ENCOUNTER 2023-06-07 16:48 | Outpatient (NON) | payer OTHER, SELFPAY ==
[2023-06-07 17:07] LABS: Appearance Urine Clear (Clear); Bilirubin Urine Negative (Negative); Blood Urine Negative (Negative); Color Urine Yellow (Yellow); Glucose Urine UA Negative (Negative); Ketones Urine Trace (Negative); Leukocyte Esterase Ur Negative LEU/UL (Negative); Nitrate Urine Negative (Negative); Protein Urine Negative (Negative); Specific Grav Ur 1.025 (1.010-1.020); Urobilinogen Urine 0.2 mg/dL (0.2-1.0)
[2023-06-07 17:23] LABS: Add Urine Microscopic? YES; Bacteria Urine 1+ /hpf; RBC Urine 0-2 /hpf (0-2); Squamous Epithelial Cell Urine Few /hpf (Few); Uric Acid Crystals Urine Present /hpf; WBC Urine 0-3 /hpf (0-3)
== END 2023-06-07 16:49 | disposition home or self-care (01) ==
PROVIDERS: Visit Provider Nurse Practitioner Family
DX: N89.8 Other specified noninflammatory disorders of vagina (principal)
CPT/HCPCS: 81001; 87070

== ENCOUNTER 2023-07-27 10:16 | Outpatient (CLI) | payer OTHER, SELFPAY ==
[2023-07-27 11:17] LABS: Alanine Aminotransferase 25 U/L (14-59); Albumin Level 3.5 g/dL (3.4-5.0); Alkaline Phosphatase 71 U/L (46-116); Anion Gap 8 mmol/L (4-12); Aspartate Amino Transferase 19 U/L (15-37); Bilirubin,Total 0.3 mg/dL (0.00-1.00); Blood Urea Nitrogen 13 mg/dL (7-18); Calcium 8.6 mg/dL (8.5-10.1); Carbon Dioxide 27 mmol/L (21-32); Chloride 104 mmol/L (98-108); Estimated Glomerular Filt Rate > 60; Glucose 86 mg/dL (70-99); Osmolality Calculated 287 mOsm/kg (285-295); Potassium 3.7 mmol/L (3.5-5.1); Sodium 139 mmol/L (136-145); Total Protein 7.6 g/dL (6.4-8.2)
[2023-07-30 16:04] LABS: Insulin Level Total 12.1 uIU/mL
== END 2023-07-27 10:17 | disposition home or self-care (01) ==
LOC: CHSLAB 10:18
PROVIDERS: PCP Family Medicine; Visit Provider Nurse Practitioner Family
DX: R60.1 Generalized edema (principal)
CPT/HCPCS: 36415; 80053; 83525; 83527

== ENCOUNTER 2023-09-11 11:41 | Outpatient (CLI) | payer OTHER, SELFPAY ==
[2023-09-11 12:31] LABS: Strep Group A RT-PCR NOT DETECTED (Negative)
[2023-09-11 12:34] LABS: Influenza A QL RT-PCR Negative (Negative); Influenza B QL RT-PCR Negative (Negative); RSV RNA, RT-PCR Negative (Negative); SARS-CoV-2 RNA PCR Negative (Negative)
== END 2023-09-11 11:42 ==
LOC: CHSLAB 11:42
PROVIDERS: PCP Family Medicine; Visit Provider Nurse Practitioner Family
DX: J02.9 Acute pharyngitis, unspecified (principal)
CPT/HCPCS: 87637; 87651

== ENCOUNTER 2023-10-04 09:51 | Outpatient (CLI) | payer OTHER, SELFPAY ==
[2023-10-04 10:55] LABS: RSV RNA, RT-PCR Negative (Negative)
[2023-10-04 11:06] LABS: HIV 1 P24 AG Negative (Negative); HIV 1/2 AB Negative (Negative)
[2023-10-05 21:08] LABS: Lupus dRVVT Confirmation POSITIVE (NEGATIVE); Lupus dRVVT Screen 61 sec (< OR = 45); PTT-LA Screen 32 sec (< OR = 40)
[2023-10-06 10:44] LABS: Hepatitis B Surface Antigen NON-REACTIVE (NON-REACTIVE); Hepatitis C Virus Antibody NON-REACTIVE (NON-REACTIVE)
[2023-10-06 10:48] LABS: Hepatitis A Antibody IgM NON-REACTIVE (NON-REACTIVE); Hepatitis B Core Antibody NON-REACTIVE (NON-REACTIVE)
[2023-10-07 03:50] LABS: Anti Cardio Antibody IgM <2.0 MPL-U/mL; Anti Cardiolipin Antibody IgA <2.0 APL-U/mL; Anti Cardiolipin Antibody IgG <2.0 GPL-U/mL
[2023-10-10 12:00] LABS: Trichomonas Vag PCR NOT DETECTED (NOT DETECTE)
== END 2023-10-04 09:52 | disposition home or self-care (01) ==
LOC: CHSLAB 09:52
PROVIDERS: PCP Family Medicine; Visit Provider Family Medicine
DX: B34.9 Viral infection, unspecified (principal); R74.01 Elevation of levels of liver transaminase levels; Z20.2 Contact with and (suspected) exposure to infections with a predominantly sexual mode of transmission; Z72.51 High risk heterosexual behavior
CPT/HCPCS: 36415; 80074; 85597; 85598; 85613; 85670; 85730; 86147; 87634; 87661; 87806

== ENCOUNTER 2023-11-30 11:58 | Outpatient (CLI) | payer OTHER, SELFPAY ==
[2023-11-30 12:49] LABS: Add Urine Microscopic? NO; Appearance Urine Clear (Clear); Bilirubin Urine Negative (Negative); Blood Urine Negative (Negative); Color Urine Light Yellow (Yellow); Glucose Urine UA Negative (Negative); Ketones Urine Negative (Negative); Leukocyte Esterase Ur Negative LEU/UL (Negative); Nitrate Urine Negative (Negative); Protein Urine Negative (Negative); Specific Grav Ur 1.025 (1.010-1.020); Urobilinogen Urine 0.2 mg/dL (0.2-1.0); pH Urine 5.5 (5.0-8.0)
[2023-11-30 13:37] LABS: HIV 1 P24 AG Negative (Negative); HIV 1/2 AB Negative (Negative)
[2023-11-30 15:23] LABS: Pregnancy On Board Control Positive; Urine Pregnancy Test Negative
[2023-12-01 08:53] LABS: Hepatitis C Virus Antibody NON-REACTIVE (NON-REACTIVE)
[2023-12-01 14:58] LABS: Bacterial Vaginosis NEGATIVE (NEGATIVE)
[2023-12-03 08:15] LABS: Chlamydia trachomatis NOT DETECTED (NOT DETECTE); Neisseria gonorrhoeae PCR NOT DETECTED (NOT DETECTE)
[2023-12-03 14:20] LABS: RPR Screen NON-REACTIVE (NON-REACTIVE)
[2023-12-04 10:52] LABS: Trichomonas Vag PCR NOT DETECTED (NOT DETECTE)
== END 2023-11-30 11:59 | disposition home or self-care (01) ==
LOC: CHSLAB 11:58
PROVIDERS: PCP Nurse Practitioner Family; Visit Provider Nurse Practitioner Family
DX: Z20.2 Contact with and (suspected) exposure to infections with a predominantly sexual mode of transmission (principal)
CPT/HCPCS: 36415; 81003; 81025; 81513; 86592; 86695; 86696; 86803; 87491; 87591; 87661; 87806

== ENCOUNTER 2023-12-14 09:57 | Outpatient (CLI) | payer OTHER, SELFPAY ==
[2023-12-14 10:24] LABS: Basophils Absolute Auto 0.04 K/mm3 (0.00-0.10); Basophils Percent Auto 0.7 % (0.0-1.0); Eosinophils Absolute Auto 0.18 K/mm3 (0.02-0.50); Eosinophils Percent Auto 3.2 % (1.0-6.0); Hematocrit 42.6 % (35.0-49.0); Hemoglobin 14.1 g/dL (12.0-15.0); Immature Granulocyte Absolute 0.01 K/mm3 (0.00-0.00); Immature Granulocyte Percent A 0.2 % (0.0-0.0); Lymphocytes Absolute Auto 2.31 K/mm3 (1.10-4.50); Lymphocytes Percent Auto 40.9 % (18.0-42.0); Mean Corpuscular HGB Conc 33.1 g/dL (32-36); Mean Corpuscular Hemoglobin 28.2 pg (27.0-31.0); Mean Corpuscular Volume 85.2 fL (78.0-102.0); Monocytes Absolute Auto 0.33 K/mm3 (0.10-0.90); Monocytes Percent Auto 5.8 % (2.0-11.0); Neutrophils Absolute Auto 2.78 K/mm3 (1.70-7.20); Neutrophils Percent Auto 49.2 % (50.0-70.0); Platelet Count Result 316 K/mm3 (150-420); Red Cell Distribution Width 12.5 % (11.6-14.4); White Blood Count 5.7 K/mm3 (4.8-10.8)
[2023-12-14 10:32] LABS: Add Urine Microscopic? YES; Appearance Urine Clear (Clear); Bilirubin Urine Negative (Negative); Blood Urine Trace-intact (Negative); Color Urine Light Yellow (Yellow); Glucose Urine UA Negative (Negative); Ketones Urine Negative (Negative); Leukocyte Esterase Ur 1+ LEU/UL (Negative); Nitrate Urine Negative (Negative); Protein Urine Negative (Negative); Specific Grav Ur 1.025 (1.010-1.020); Urobilinogen Urine 0.2 mg/dL (0.2-1.0); pH Urine 5.5 (5.0-8.0)
[2023-12-14 10:49] LABS: RBC Urine 0-2 /hpf (0-2); Squamous Epithelial Cell Urine Few /hpf (Few)
[2023-12-14 10:50] LABS: Bacteria Urine 1+ /hpf
[2023-12-14 11:03] LABS: Alanine Aminotransferase 40 U/L (14-59); Albumin Level 3.5 g/dL (3.4-5.0); Alkaline Phosphatase 89 U/L (46-116); Anion Gap 10 mmol/L (4-12); Aspartate Amino Transferase 22 U/L (15-37); Bilirubin,Total 0.4 mg/dL (0.00-1.00); Blood Urea Nitrogen 14 mg/dL (7-18); Calcium 8.8 mg/dL (8.5-10.1); Carbon Dioxide 27 mmol/L (21-32); Chloride 106 mmol/L (98-108); Estimated Glomerular Filt Rate > 60; Glucose 97 mg/dL (70-99); Osmolality Calculated 296 mOsm/kg (285-295); Sodium 143 mmol/L (136-145); Total Protein 6.8 g/dL (6.4-8.2)
[2023-12-14 11:14] LABS: CRP < 0.5 mg/dL (0.0-0.9)
== END 2023-12-14 09:58 | disposition home or self-care (01) ==
LOC: CHSLAB 09:58
PROVIDERS: PCP Nurse Practitioner Family; Visit Provider Nurse Practitioner Family
DX: R39.9 Unspecified symptoms and signs involving the genitourinary system (principal); R10.9 Unspecified abdominal pain; R82.90 Unspecified abnormal findings in urine
CPT/HCPCS: 36415; 80053; 81001; 85025; 86140; 87086

== ENCOUNTER 2024-07-08 11:51 | Outpatient (CLI) | payer OTHER, SELFPAY ==
--- NOTE | ~2024-07-08 | XR_ITS ---
XR_[id number]_CR INDICATION: 4 views cervical spine TECHNIQUE: 4 views of the cervical spine. FINDINGS: No prior studies for comparison. The cervical spine is visualized to the cervicothoracic junction. There is no prevertebral soft tiss ue swelling, listhesis, or loss of vertebral body height. Intervertebral disc spaces are normal. Th e osseous central canal is patent. No displaced cervical spine fractures are identified. IMPRESSION: 1. No acute osseous abnormality of the cervical spine. Reviewed, dictated and finalized at location A.
--- OUTSIDE RECORDS SUMMARY | 2024-07-08 11:54 | XMS_ITS | Clinical Summary ---
Author Organization [facility] Address [address] [place] [address] Phone Care Team Providers Care Circulation Assistant Name Role Phone Unavailable Primary Care Provider Unavailabl e Social History Tobacco Use Types Packs/Day Years Used Date Smoking Tobacco: Never Assessed Comments Unknown Sex and Gender Information Value Date Recorded Sex Assigned at Not on file Legal Sex Female 11:28 AM CDT Gender Identity Not on file Sexual Orientation Not on file Plan of Treatment Health Maintenance Due Date Last Done Comments DTAP/TDAP/TD VACCINES (1 - Tdap) 02/13/2016 HEPATITIS B VACCINES (1 of 3 - 19+ 3-dose series) 02/13/2016 CERVICAL CANCER SCREENING 2018 HPV/Cotest (21-29) 2018 PAP SMEAR 2018 INFLUENZA VACCINE (#1) 2023 HPV VACCINES Aged Out No longer eligi ble based on patient's age to complete this topic Insurance [place]ICAID [place] [address] [place], [place] [id number] POS II
[2024-07-08 12:51] LABS: Troponin I < 0.012 ng/mL (0.000-0.034)
[2024-07-08 13:11] LABS: Pregnancy On Board Control Positive; Urine Pregnancy Test Negative
[2024-07-10 02:38] LABS: Anti Cardio Antibody IgM 2.5 MPL-U/mL; Anti Cardiolipin Antibody IgA <2.0 APL-U/mL; Anti Cardiolipin Antibody IgG <2.0 GPL-U/mL
[2024-07-10 03:04] LABS: ANA Cascade Screen NEGATIVE (NEGATIVE)
[2024-07-10 19:39] LABS: Lupus dRVVT Screen 30 sec (< OR = 45); PTT-LA Screen 33 sec (< OR = 40)
== END 2024-07-08 11:52 | disposition home or self-care (01) ==
LOC: CHSLAB 11:52
PROVIDERS: PCP Family Medicine; Visit Provider Nurse Practitioner Family
DX: D68.61 Antiphospholipid syndrome (principal); R21 Rash and other nonspecific skin eruption; R07.89 Other chest pain; Z30.9 Encounter for contraceptive management, unspecified; M54.2 Cervicalgia
CPT/HCPCS: 36415; 72040; 81025; 84484; 85613; 85730; 86038; 86146; 86147; 86225; 86235; 86364